=== PATIENT | male | born 1955 | race Caucasian/White ===

== ENCOUNTER 2017-11-04 14:46 | Emergency (ER) | payer OTHER ==
[~2017-11-04] VITALS: Ht 172.7 cm; Wt 86.3 kg
[~2017-11-04 14:46] MED LIST: ASPI81TA28 PO; ATV1 PO; CZR50 PO; MAGN400T6 PO; MELO7.5T5 PO; MULTTAB58 PO; PRLSR20 PO; SILD50TA PO; SIMV-151 PO; TRIA0.1C20 TOP
[2017-11-04 14:55] VITALS: TEMP 36.7; Ht 172.7 cm; Wt 86.3 kg
[2017-11-04] MEDS ORDERED: NRV/5 PO (15:06)
[2017-11-04] MEDS ORDERED: CZR50 PO (15:06)
--- NOTE | 2017-11-04 15:30 | DIAGNOSTIC IMAGING REPORT ---
CHEST ONE VIEW PORTABLE HISTORY: 61 years-old Male eval for pna acute cough with concern for pneumonia COMPARISON: Chest radiograph 03/04/2015 TECHNIQUE: Portable AP view of the chest FINDINGS: Cardiac silhouette is mildly enlarged. No pneumothorax, pleural effusion, focal airspace consolidation or overt pulmonary edema. Degenerative changes of the shoulders and spine. IMPRESSION: No acute process. The above report was generated using voice recognition software. It may contain grammatical, syntax or spelling errors. Electronically signed by: James Mary M.D. 11/04/2017 3:28 PM Dictated Date/Time: 11/04/2017 3:27 PM
[2017-11-04 15:43] VITALS: O2SAT 98
[2017-11-04 16:04] LABS: BASO % 0.3 %; BASO ABS # 0.02 K/uL (0-0.2); EOS % 9.7 %; EOS ABS # 0.59 K/uL (0-0.5); HEMATOCRIT 39.6 % (42-52); HEMOGLOBIN 13.4 g/dL (14.0-18.0); IG# 0.02 K/uL (0.00-0.02); LYMPH % 23.2 %; LYMPH ABS # 1.41 K/uL (1.2-3.4); MEAN CELL VOLUME 95.2 fL (80-100); MEAN CORPUSCULAR HEMOGLOBIN 32.2 pg (25-34); MEAN CORPUSCULAR HGB CONC 33.8 g/dl (32-36); MEAN PLATELET VOLUME 9.6 fL (7.4-10.4); MONO % 10.4 %; MONO ABS # 0.63 K/uL (0.11-0.59); NEUT % 56.1 %; NEUT ABS # 3.41 K/uL (1.4-6.5); PLATELET COUNT 252 K/uL (130-400); RED CELL DISTRIBUTION WIDTH CV 13.4 % (11.5-14.5); RED CELL DISTRIBUTION WIDTH SD 46.5 fL (36.4-46.3); WHITE BLOOD COUNT 6.08 K/uL (4.8-10.8)
[2017-11-04 16:25] LABS: CALCIUM 8.9 mg/dl (8.5-10.1); CREATININE 0.87 mg/dl (0.60-1.40)
[2017-11-04 16:27] LABS: PTT PATIENT 25.6 SECONDS (21.0-31.0)
[2017-11-04] MEDS ORDERED: SODIUM CHLORIDE 0.9% 1000ML 1,000 ML IV STA (16:34)
[2017-11-04 17:50] VITALS: BP 169/100; PULSE 80; O2SAT 96
--- NOTE | 2017-11-04 17:52 | EMERGENCY ROOM VISIT NOTE ---
History Report prepared by Nicole: Destiney Kelly Under the Supervision of: Dr. Abhilash Vargas M.D. First contact with patient: 15:07 Chief Complaint: DIZZY Stated Complaint: LIGHTHEADED, DIZZINESS,IRREGULAR HEARTBEAT Nursing Triage Summary: Vertigo x3 days with palpitations. Denies CP or dyspnea. History of Present Illness The patient is a 61 year old male who presents to the Emergency Room with complaints of intermittent lightheadedness starting 1 week ago. The patient states that he had one very brief episode of room spinning 8 days ago. He has mostly been feeling lightheaded with standing. He has also had some palpitations for the past week. He notes a history of PVC. He was diagnosed years ago but has never been on any medications. He does not feel faint. He denies any chest discomfort, SOB, fever, vomiting, diarrhea, abdominal pain, cold symptoms, or urinary symptoms. He thinks that he is eating and drinking enough, but his daughter does not think he drinks enough. He has a history of hypertension. He denies any recent medication changes. He notes that he is active and goes hiking regularly. Source of History: patient, family Onset: 1 week ago Position: head Quality: other (lightheadedness) Timing: intermittent Modifying Factors (Worsening): other (standing) Associated Symptoms: No fevers, No chest pain, No SOB, No vomiting, No abdominal pain, No diarrhea, No urinary symptoms Note: Pt reports palpitations. Review of Systems See HPI for pertinent positives & negatives. A total of 10 systems reviewed and were otherwise negative. Past Medical & Surgical Medical Problems: (1) Anxiety (2) Degenerative disc disease, cervical (3) Dyslipidemia (4) Erectile dysfunction (5) Hypertension (6) Mitral valve prolapse Surgical Problems: (1) H/O arthroscopic knee surgery Family History Heart disease Hypertension Social History Smoking Status: Never Smoker Marital Status: Housing Status: lives with family Occupation Status: employed Current/Historical Medications Scheduled Amlodipine Besylate (Amlodipine Besylate), 10 MG PO DAILY Aspirin (Aspirin Ec), 81 MG PO QAM Losartan Potassium (Losartan Potassium), 50 MG PO DAILY Magnesium Oxide (Mag-Ox), 400 MG PO QAM Meloxicam (Mobic), 15 MG PO DAILY Simvastatin (Simvastatin), 20 MG PO QPM Scheduled PRN Omeprazole (Prilosec), 20 MG PO DAILY PRN for Indigestion Allergies Coded Allergies: Buspirone (Verified Adverse Reaction, Intermediate, NAUSEA/VOMITING, ) Citalopram (Verified Adverse Reaction, Unknown, UNKNOWN - DOES NOT REMEMBER, 03/23/16) Physical Exam Vital Signs Date Time Temp Pulse Resp B/P (MAP) Pulse Ox O2 Delivery O2 Flow Rate FiO2 11/04/17 16:27 82 22 132/74 89 156/90 94 123/94 11/04/17 16:00 81 11/04/17 15:53 81 20 132/74 98 Room Air 11/04/17 15:43 98 Room Air 11/04/17 14:55 36.7 73 18 138/70 98 Room Air Physical Exam Constitutional: Vital signs reviewed. Eyes: Pupils are equal round reactive to light. Conjunctiva are noninjected. ENT: Pharynx is clear without erythema or exudate. Mucous membranes are moist. Neck supple without meningeal signs. Respiratory: Clear to auscultation bilaterally. Breath sounds are equal bilaterally. Cardiovascular: Regular rate and rhythm with frequent extrasystoles. No rubs or gallops. GI: Soft, nondistended and nontender. Bowel sounds are present. Musculoskeletal: No peripheral edema. No lower extremity tenderness. Integumentary: No cyanosis. Neurological: The patient is awake and alert. Cranial nerves II-XII are intact. Motor is 5 out of 5 all extremities. Sensation is intact to light touch all extremities. Normal speech. No pronator drift. No limb ataxia. Psychiatric: Normal affect. Medical Decision & Procedures ER Provider Diagnostic Interpretation: X-ray results as stated below per interpretation by me and the radiologist: CHEST ONE VIEW PORTABLE HISTORY: 61 years-old Male eval for pna acute cough with concern for pneumonia COMPARISON: Chest radiograph 03/04/2015 TECHNIQUE: Portable AP view of the chest FINDINGS: Cardiac silhouette is mildly enlarged. No pneumothorax, pleural effusion, focal airspace consolidation or overt pulmonary edema. Degenerative changes of the shoulders and spine. IMPRESSION: No acute process. The above report was generated using voice recognition software. It may contain grammatical, syntax or spelling errors. Electronically signed by: James Mary M.D. 11/04/2017 3:28 PM Dictated Date/Time: 11/04/2017 3:27 PM Laboratory Results 11/04/17 15:50 Red Blood Count 4.16, Mean Corpuscular Volume 95.2, Mean Corpuscular Hemoglobin 32.2, Mean Corpuscular Hemoglobin Concent 33.8, Mean Platelet Volume 9.6, Neutrophils (%) (Auto) 56.1, Lymphocytes (%) (Auto) 23.2, Monocytes (%) (Auto) 10.4, Eosinophils (%) (Auto) 9.7, Basophils (%) (Auto) 0.3, Neutrophils # (Auto ) 3.41, Lymphocytes # (Auto) 1.41, Monocytes # (Auto) 0.63, Eosinophils # (Auto ) 0.59, Basophils # (Auto) 0.02 11/04/17 15:50 Test 11/04/17 15:50 11/04/17 15:58 White Blood Count 6.08 K/uL (4.8-10.8) Red Blood Count 4.16 M/uL (4.7-6.1) Hemoglobin 13.4 g/dL (14.0-18.0) Hematocrit 39.6 % (42-52) Mean Corpuscular Volume 95.2 fL (80-100) Mean Corpuscular Hemoglobin 32.2 pg (25-34) Mean Corpuscular Hemoglobin Concent 33.8 g/dl (32-36) Platelet Count 252 K/uL (130-400) Mean Platelet Volume 9.6 fL (7.4-10.4) Neutrophils (%) (Auto) 56.1 % Lymphocytes (%) (Auto) 23.2 % Monocytes (%) (Auto) 10.4 % Eosinophils (%) (Auto) 9.7 % Basophils (%) (Auto) 0.3 % Neutrophils # (Auto) 3.41 K/uL (1.4-6.5) Lymphocytes # (Auto) 1.41 K/uL (1.2-3.4) Monocytes # (Auto) 0.63 K/uL (0.11-0.59) Eosinophils # (Auto) 0.59 K/uL (0-0.5) Basophils # (Auto) 0.02 K/uL (0-0.2) RDW Standard Deviation 46.5 fL (36.4-46.3) RDW Coefficient of Variation 13.4 % (11.5-14.5) Immature Granulocyte % (Auto) 0.3 % Immature Granulocyte # (Auto) 0.02 K/uL (0.00-0.02) Prothrombin Time 10.5 SECONDS (9.0-12.0) Prothromb Time International Ratio 1.0 (0.9-1.1) Activated Partial Thromboplast Time 25.6 SECONDS (21.0-31.0) Partial Thromboplastin Ratio 1.0 Urine Color YELLOW Urine Appearance CLEAR (CLEAR) Urine pH 7.0 (4.5-7.5) Urine Specific [place] 1.008 (1.000-1.030) Urine Protein NEG (NEG) Urine Glucose (UA) NEG (NEG) Urine Ketones NEG (NEG) Urine Occult Blood TRACE (NEG) Urine Nitrite NEG (NEG) Urine Bilirubin NEG (NEG) Urine Urobilinogen NEG (NEG) Urine Leukocyte Esterase NEG (NEG) Urine WBC (Auto) 0 /hpf (0-5) Urine RBC (Auto) 0-4 /hpf (0-4) Urine Hyaline Casts (Auto) 0 /lpf (0-5) Urine Epithelial Cells (Auto) 0-5 /lpf (0-5) Urine Bacteria (Auto) NEG (NEG) Anion Gap 4.0 mmol/L (3-11) Est Creatinine Clear Calc Drug Dose 95.3 ml/min Estimated GFR () 108.0 Estimated GFR (Non- 93.2 BUN/Creatinine Ratio 15.5 (10-20) Calcium Level 8.9 mg/dl (8.5-10.1) Magnesium Level 2.2 mg/dl (1.8-2.4) Thyroid Stimulating Hormone (TSH) 1.230 uIu/ml (0.300-4.500) Free Thyroxine 0.85 ng/dl (0.80-1.60) Bedside Troponin I < 0.030 ng/ml (0-0.045) Laboratory results as reviewed by me. Medications Administered Medications (Trade) Dose Ordered Sig/Patsy Route Start Time Stop Time Status Last Admin Dose Admin Sodium Chloride 1,000 ml @ 999 mls/hr Q1H1M STAT IV 11/04/17 16:34 11/04/17 17:34 DC 11/04/17 16:39 999 MLS/HR ECG Per My Interpretation Indication: palpitations Rate (beats per minute): 80 Rhythm: sinus rhythm Findings: PVC (frequent), Q waves (Septal), other (no ST elevation, no QT prolongation) ED Course 1508: The patient was evaluated in room A3. A complete history and physical exam was performed. 1634: Sodium Chloride 1000 ml @ 999 mls/hr IV. 1644: I reevaluated the patient. I updated him on the test results. 1730: I discussed the patient's case with [place], [facility]. He recommends the patient follow up in the office. He would not necessarily start the patient on beta blockers at this time. 1733: I reevaluated the patient. I discussed tonight's findings with him. I reviewed cardiology's recommendations. He verbalized agreement of the treatment plan. He was discharged home. Medical Decision This is a 61-year-old male who presents with palpitations and lightheadedness upon standing. Differential diagnosis includes dysrhythmia, A. fib, PVCs, electrolyte abnormality, metabolic derangement, dehydration, orthostatic hypotension. I did perform a limited focused review of portions of the patient' s old chart on the electronic medical record. The patient has had no recent pertinent visits to this hospital. I did evaluate the patient as noted above. This is a pleasant well-appearing gentleman presenting with a week of palpitations and lightheadedness upon standing. On examination he does have extrasystole consistent with PVCs. IV access was established. The patient was placed on a continuous radiographer cardiac catheterization. He does have multiple PVCs on the monitor. I did order and personally review the patient's 12-lead EKG and chest x-ray as described above. There is no evidence of acute ischemia on his twelve-lead EKG. chest x-ray is unremarkable. I did order and review the patient's blood work as noted in the electronic medical record. Electrolytes are unremarkable. TFTs are normal. Troponin is negative. He does have some mild decrease in his blood pressure upon standing. He was given a liter normal saline IV. I did discuss the test results with the patient. I did discuss case with Dr. Cunha of cardiology. He felt that the PVCs likely are were not related to the lightheadedness. The patient does state that he does a lot of hiking and his daughter states he does not stay well-hydrated. He did feel better after normal saline. Dr. Cunha did not feel the patient needed to be started on any medications for his PVCs and recommended he follow-up in the office. I did discuss this with the patient. He was discharged in good condition. I did review return instructions with him. Medication Reconcilliation Current Medication List: was personally reviewed by me Blood Pressure Screening Patient's blood pressure: Elevated blood pressure Blood pressure disposition: Referred to PCP Consults Time Called: 1647 Consulting Physician: Dr. C[place], [facility] Returned Call: [phone] I discussed the patient's case with him. He recommends the patient follow up in the office. He would not necessarily start the patient on beta blockers at this time. Impression Primary Impression: Palpitations Additional Impressions: PVC (premature ventricular contraction) Lightheadedness Scribe Attestation The scribe's documentation has been prepared under my direct and personally reviewed by me in its entirety. I confirm that the note above accurately reflects all work, treatment, procedures, and medical decision making performed by me. Departure Information Dispostion Home / Self-Care Referrals Tanner Bright D.ODeepika (PCP) Forms HOME CARE DOCUMENTATION FORM, IMPORTANT VISIT INFORMATION Patient Instructions My [facility], Premature Ventricular Contract About Additional Instructions You have been examined and treated today on an emergency basis only. This is not a substitute for, or an effort to provide, complete comprehensive medical care. It is impossible to recognize and treat all injuries or illnesses in a single emergency department visit. It is therefore important that you follow up closely with your physician. Call as soon as possible for an appointment. Return for worsening symptoms or if you develop fever, vomiting, chest pain, shortness of breath or any other concerning symptoms. Avoid any heavy exertion. Stay well hydrated. Avoid any stimulants such as caffeine. Problem Qualifiers
== END 2017-11-04 17:51 | disposition home or self-care (01) ==
LOC: C.EDB 14:48 → C.EDA 17:51
DX: R00.2 Palpitations (principal); I49.3 Ventricular premature depolarization; I10 Essential (primary) hypertension; F41.9 Anxiety disorder, unspecified; E78.5 Hyperlipidemia, unspecified; M50.30 Other cervical disc degeneration, unspecified cervical region; N52.9 Male erectile dysfunction, unspecified; I34.1 Nonrheumatic mitral (valve) prolapse; Z82.49 Family history of ischemic heart disease and other diseases of the circulatory system; Z79.82 Long term (current) use of aspirin; Z79.899 Other long term (current) drug therapy; Z88.8 Allergy status to other drugs, medicaments and biological substances

== ENCOUNTER 2019-08-11 10:29 | Inpatient (IN) ==
--- NOTE | 2019-07-28 10:13 | PAT Medication Instructions ---
Medication Instructions Date of Service July 28, 2019 Home Medications Medication Instructions Recorded gabapentin 100 mg capsule 100 mg PO TID #90 cap 02/05/19 aspirin 81 mg tablet,delayed release 81 mg PO DAILY losartan 50 mg tablet 50 mg PO QAM magnesium oxide 400 mg PO DAILY simvastatin 20 mg tablet 20 mg PO QPM amlodipine 10 mg PO QAM lorazepam 1 mg PO BID PRN metoprolol succinate 12.5 mg PO QAM multivitamin 1 cap PO QAM sildenafil [Viagra] 50 mg PO DAILY PRN triamcinolone acetonide 1 applic TOPICAL UD PRN meloxicam 15 mg tablet 15 mg PO DAILY omeprazole 20 mg capsule,delayed release 20 mg PO QAM gabapentin 100 mg capsule 100 mg PO TID prednisone 10 mg PO DAILY scopolamine base 1 patch TRANSDERMAL UD PRN Continue as directed scopolamine base 1 patch TRANSDERMAL UD PRN (continue as directed. If taking day of surgery, please let anesthesiologist know) ASK your surgeon for instructions meloxicam 15 mg tablet 15 mg PO DAILY STOP taking 24 hours before surgery triamcinolone acetonide 1 applic TOPICAL UD PRN DO NOT take the morning of surgery losartan 50 mg tablet 50 mg PO QAM magnesium oxide 400 mg PO DAILY multivitamin 1 cap PO QAM sildenafil [Viagra] 50 mg PO DAILY PRN Take morning of surgery With a small sip of water, OTHERWISE NOTHING TO EAT OR DRINK AFTER MIDNIGHT: amlodipine 10 mg PO QAM lorazepam 1 mg PO BID PRN (if needed) metoprolol succinate 12.5 mg PO QAM omeprazole 20 mg capsule,delayed release 20 mg PO QAM gabapentin 100 mg capsule 100 mg PO TID prednisone 10 mg PO DAILY Take evening before surgery simvastatin 20 mg tablet 20 mg PO QPM lorazepam 1 mg PO BID PRN (if needed) sildenafil [Viagra] 50 mg PO DAILY PRN (if needed) gabapentin 100 mg capsule 100 mg PO TID scopolamine base 1 patch TRANSDERMAL UD PRN (if needed) Other Notes If you have any questions please call us at [phone] or [phone] or [phone] or [phone]
--- NOTE | 2019-07-29 12:22 | Anesthesiology Consultation ---
Date of Service July 29, 2019 Assessment & Plan (1) Encounter for pre-operative examination: S/P C4 corpectomy, C5-6 ACDF: 05/16/18: Grade 2 view (cricoid pressure to improve view), MAC#4, ETT 8.0 at [facility] (atraumatic, large floppy epiglottis required CCP to see beyond) Chart Review Chart Review: Acceptable Risk for Surgery History Surgery Operation Date: 08/11/19 12:35 Proposed Procedures p L4-L5 Decompression Fusion, Spinal Cord Monitoring - Toni Vázquez DO Height/Weight Height: 5 ft 8 in Weight: 73.7 kg Allergies Allergy/AdvReac Type Severity Reaction Status Date / Time citalopram Allergy Unknown UNKNOWN Verified 07/29/19 12:25 REACTION buspirone AdvReac Unknown NAUSEA/VOMI Verified 07/17/19 09:32 TING Medications Home Medications Medication Instructions Recorded Confirmed Last Taken aspirin 81 mg tablet,delayed 81 mg PO DAILY 04/16/18 07/17/19 05/15/18 06:00 release losartan 50 mg tablet 50 mg PO QAM 04/16/18 07/17/19 07/17/19 magnesium oxide 400 mg PO DAILY tab 04/16/18 07/17/19 05/15/18 06:00 simvastatin 20 mg tablet 20 mg PO QPM 04/16/18 07/17/19 05/15/18 17:30 amlodipine 10 mg PO QAM 05/13/18 07/17/19 07/17/19 lorazepam 1 mg PO BID PRN 05/13/18 07/17/19 05/16/18 05:00 metoprolol succinate 12.5 mg PO QAM 05/13/18 07/17/19 07/17/19 multivitamin 1 cap PO QAM 05/13/18 07/17/19 05/15/18 06:00 sildenafil [Viagra] 50 mg PO DAILY PRN 05/13/18 07/17/19 Unknown triamcinolone acetonide 1 applic TOPICAL UD PRN 05/13/18 07/17/19 Unknown meloxicam 15 mg tablet 15 mg PO DAILY 08/08/18 07/17/19 Unknown omeprazole 20 mg capsule,delayed 20 mg PO QAM 09/30/18 07/17/19 07/17/19 release gabapentin 100 mg capsule 100 mg PO TID #90 cap 02/05/19 07/17/19 Unknown Past Medical History Medical History (Updated 07/29/19 @ 12:38 by Elva Sauceda) Acid reflux controlled Anxiety (Chronic) Cavernous malformation (Chronic) incidental findings/under surveillance Dyslipidemia (Chronic) Hypertension (Chronic) Lumbar spinal stenosis (Chronic) with occasional RLE radiculopathy- s/p prednisone course completed week of 07/20/19 Symptomatic PVCs (Chronic) Resolved completely with Metoprolol Exercise / Class Metabolic Activity II 4-5 Yardwork/Stairs/Walk up hill Past Surgical History Surgical History Cervical vertebral fusion (Chronic) C4 corpectomy, C5-6 ACDF: 05/16/18: Grade 2 view (cricoid pressure to improve view), MAC#4, ETT 8.0 at [facility] (atraumatic, large floppy epiglottis required CCP to see beyond) H/O arthroscopic knee surgery (Chronic) right x1, left x1 Hx of appendectomy (Chronic) Hx of colonoscopy (Chronic) Hx of eye surgery (Chronic) LEFT - macular pouch surgery 2014 [facility] Past Anesthesia History No Hx of Anesthesia Complications and No Family Hx of Anesthesia Complications History of PONV No Hx of PONV and No Hx of Motion Sickness Social History Smoking Status: Former smoker tobacco type: cigarettes Smoking cigarettes per day: 1 PPD X 5 YEAR (IN COLLEGE) Do You Dip or Chew Tobacco: No Hx Alcohol Use: Yes Alcohol type: wine alcohol intake frequency: 0-2 drinks per day (1-2 WINE/NIGHT) Hx Substance Use: No substance use type: does not use Review of Systems Patient denies chest pain, shortness of breath, dyspnea on exertion, cough, wheezing, palpitations. Physical Exam Vital Signs VITALS BP 133/80 P 73 TEMP 98.8 SP02 98%RA RESP 16 PHYSICAL Full neck and c-spine range of motion. Full TMJ range of motion. TMD 3.5 finger breaths Mallampati Score 1 Dentition: missing molar, missing cap on right sided molar Lungs: clear throughout to auscultation Cardiac: regular rate and rhythm, no murmurs noted Spine: normal Carotid arteries: negative bruit Extremities: no edema Trimmed tenorio Testing Laboratory Results 07/29/19 12:40 07/29/19 12:40 PT 10.3 Seconds (9.0-12.0) 07/29/19 12:40 INR 1.0 (0.9-1.1) 07/29/19 12:40 APTT 24.1 Seconds (21.0-31.0) 07/29/19 12:40 Urine Color Yellow 07/29/19 Unknown Urine Appearance Clear (Clear) 07/29/19 Unknown Urine pH 7.0 (4.5-7.5) 07/29/19 Unknown Ur Specific [place] 1.011 (1.000-1.030) 07/29/19 Unknown Urine Protein Negative (Negative) 07/29/19 Unknown Urine Glucose (UA) Negative (Negative) 07/29/19 Unknown Urine Ketones 1+ (Negative) H 07/29/19 Unknown Urine Nitrite Negative (Negative) 07/29/19 Unknown Ur Leukocyte Esterase Negative (Negative) 07/29/19 Unknown Urine WBC (Auto) 0 /hpf (0-5) 07/29/19 Unknown Urine RBC (Auto) 5-10 /hpf (0-4) H 07/29/19 Unknown U Hyaline Cast (Auto) 0 /lpf (0-5) 07/29/19 Unknown U Epithel Cells (Auto) 0-5 /lpf (0-5) 07/29/19 Unknown Urine Bacteria (Auto) Negative (Negative) 07/29/19 Unknown Blood Type A Positive 07/29/19 12:40 Antibody Screen NEGATIVE 07/29/19 12:40 Electrocardiogram Date: 01/28/19 NSR at 62bpm. Septal infarct, age undetermined. No significant change compared to 02/06/12 per cardiology. S/P ECHO 10/2017* Chest X-Ray Date: 07/29/19 Findings: + NAD Echocardiogram Date: 11/29/17 EF: 55-59% Left ventricular wall motion is normal. There is mild posterior mitral leaflet prolapse. Mild MR. The mitral regurg jet is posteriorly directed.
[2019-07-29 12:59] LABS: Basophils # (auto) 0.01 K/uL (0-0.2); Basophils % (auto) 0.1 %; Eosinophils # (auto) 0.03 K/uL (0-0.5); Eosinophils % (auto) 0.4 %; Hematocrit (blood only) 43.9 % (42-52); Hemoglobin 14.5 g/dL (14.0-18.0); Immature Granulocytes # (auto) 0.02 K/uL (0.00-0.02); Immature Granulocytes % (auto) 0.3 %; Lymphocytes # (auto) 0.89 K/uL (1.2-3.4); Lymphocytes % (auto) 11.8 %; Mean Corpuscular Hemoglobin 32.3 pg (25-34); Mean Corpuscular Volume 97.8 fL (80-100); Mean Platelet Volume 10.1 fL (7.4-10.4); Monocytes # (auto) 0.45 K/uL (0.11-0.59); Neutrophils # (auto) 6.16 K/uL (1.4-6.5); Neutrophils % (auto) 81.4 %; Platelet Count 257 K/uL (130-400); RDW Coefficient of Variation 13.5 % (11.5-14.5); RDW Standard Deviation 48.1 fL (36.4-46.3); Red Blood Count 4.49 M/uL (4.7-6.1); White Blood Count 7.56 K/uL (4.8-10.8)
[2019-07-29 13:01] LABS: Appearance Urine Clear (Clear); Bacteria Urine Automated Negative (Negative); Bilirubin Urine Negative (Negative); Blood Urine Trace (Negative); Cast Urine Automated 0 /lpf (0-5); Color Urine Yellow; Epithelial Cell Urine Auto 0-5 /lpf (0-5); Glucose Urine UA Negative (Negative); Ketones Urine 1+ (Negative); Leukocyte Esterase Urine Negative (Negative); Nitrite Urine Negative (Negative); Protein Urine Negative (Negative); Specific Gravity Urine 1.011 (1.000-1.030); Urobilinogen Urine Negative (Negative); WBC Urine Automated 0 /hpf (0-5)
[2019-07-29 13:09] LABS: Partial Thromboplastin Ratio 0.9; Partial Thromboplastin Time 24.1 Seconds (21.0-31.0); Prothrombin Time 10.3 Seconds (9.0-12.0)
--- NOTE | 2019-07-29 13:15 | XRay Report ---
XR chest Pre-admission PA/Lat HISTORY: Preop. COMPARISON: Chest 05/10/2018. FINDINGS: The lungs are clear. Cardiac silhouette is normal in size. No pleural effusions. No pneumot horax. Cervical spinal fusion hardware is noted. IMPRESSION: No acute process. ACT 112: Negative or not required by law. Electronically signed by: Reginaldo Caputo M.D. 07/29/2019 1:14 PM
[2019-07-29 15:46] LABS: BUN Creatinine Ratio 17.4 (10-20); Calcium 9.7 mg/dl (8.5-10.1); Est GFR (African American) 98.3; Est GFR (Non-African American) 84.9
[~2019-08-11 10:29] MED LIST changes: +ACETAMINOPHEN 500 MG TAB PO SCH; -ASPI81TA28 PO; -ATV1 PO; +CEFAZOLIN 1000MG 1,000 MG/7.5 ML SYR IV SCH; -CZR50 PO; +CeleBREX 200 MG CAP PO SCH; +GABAPENTIN 600 MG DOSE PO SCH; +LR 15ML/HR IV SCH; -MAGN400T6 PO; -MELO7.5T5 PO; -MULTTAB58 PO; -PRLSR20 PO; -SILD50TA PO; -SIMV-151 PO; -TRIA0.1C20 TOP
[2019-08-11] MEDS ORDERED: fentaNYL citrate 100 MCG/2 ML VIAL ONE (12:02)
[2019-08-11] MEDS ORDERED: MIDAZOLAM HCL 1 MG/ML 2ML VIAL ONE (12:02)
[2019-08-11] MEDS ORDERED: ePHEDrine sulfate 50 MG/ML AMP IV PRN (12:07)
[2019-08-11] MEDS ORDERED: PROMETHAZINE HCL 6.25 MG in SODIUM CHLORIDE 0.9% 50 ML IV PRN (12:07)
[2019-08-11] MEDS ORDERED: ATROPINE SULFATE 0.1 MG/ML 10ML SYR IV PRN (12:07)
[2019-08-11] MEDS ORDERED: ONDANSETRON INJ 2 MG/ML 2 ML VIAL IV PRN ×2 (12:07→16:53)
--- NOTE | 2019-08-11 12:59 | History & Physical Bridge Note ---
Date of Service August 11, 2019 History & Physical Bridge Note I have examined the patient, reviewed the History & Physical and in the interval since the performance of the History & Physical I have noted the following changes of clinical significance: no changes noted
--- NOTE | 2019-08-11 13:03 | History & Physical Report ---
Date of Service August 11, 2019 Assessment & Plan (1) Neurogenic claudication due to lumbar spinal stenosis: L4-L5 decompression fusion Present on Admission?: Yes History of Present Illness Chief Complaint: Back and leg pain Primary Care Provider: Tanner Bright, This is a 63-year-old male presents with chronic persistent back and leg pain after failed extensive course of nonoperative care is here for surgical intervention. Allergies Allergy/AdvReac Type Severity Reaction Status Date / Time citalopram Allergy Unknown UNKNOWN Verified 08/11/19 10:53 REACTION buspirone AdvReac Unknown NAUSEA/VOMI Verified 08/11/19 10:53 TING Home Medications Home Medications Medication Instructions Recorded Confirmed Type aspirin 81 mg tablet,delayed 81 mg PO DAILY 04/16/18 08/11/19 History release losartan 50 mg tablet 50 mg PO QAM 04/16/18 08/11/19 History magnesium oxide 400 mg PO DAILY tab 04/16/18 08/11/19 History simvastatin 20 mg tablet 20 mg PO QPM 04/16/18 08/11/19 History amlodipine 10 mg PO QAM 05/13/18 08/11/19 History lorazepam 1 mg PO BID PRN 05/13/18 08/11/19 History metoprolol succinate 12.5 mg PO QAM 05/13/18 08/11/19 History multivitamin 1 cap PO QAM 05/13/18 08/11/19 History sildenafil [Viagra] 50 mg PO DAILY PRN 05/13/18 08/11/19 History triamcinolone acetonide 1 applic TOPICAL UD PRN 05/13/18 08/11/19 History meloxicam 15 mg tablet 15 mg PO DAILY 08/08/18 08/11/19 History omeprazole 20 mg capsule,delayed 20 mg PO QAM 09/30/18 08/11/19 History release gabapentin 100 mg capsule 100 mg PO TID #90 cap 02/05/19 08/11/19 Rx Past Med/Surg History Social History Preferred Language: Latvian Communication Ability: Effective Visual Impairment: No Limitations Glost Tile Shader Required: No Beliefs That Will Affect Care: None Current Living Situation: Spouse Other Information That Helps Us Care for You: No Feels Safe at Home: Yes Smoking Status: Former smoker Tobacco Type: cigarettes ; Cigarettes Per Day: 1 PPD X 5 YEAR (IN COLLEGE) ; Do You Dip or Chew Tobacco: No ; Second Hand Exposure: No ; Hx Alcohol Use: Yes Alcohol type: wine Hx Substance Use: No Physical Exam Physical Exam: Patient is alert and oriented neurologically intact. Results & Data Vital Signs (Past 12 Hours) Vital Signs Temp Pulse Resp BP Pulse Ox 08/11/19 10:58 36.9 C 68 18 137/79 97
[2019-08-11] MEDS ORDERED: BUPIVACAINE/EPINEPHRINE 0.25% 1:200,000 30 ML VIAL ONE ×2 (13:23→13:33)
[2019-08-11] MEDS ORDERED: BACITRACIN INJ 50,000 UNIT VIAL ONE (13:23)
[2019-08-11] MEDS ORDERED: LIDOCAINE HCL 2% 2 ML VIAL/AMP(20MG/ML) INFIL ONE (14:08)
[2019-08-11] MEDS ORDERED: ROCURONIUM BROMIDE 10 MG/ML 5 ML VIAL ONE (14:08)
[2019-08-11] MEDS ORDERED: ePHEDrine sulfate 50 MG/ML AMP ONE (14:08)
[2019-08-11] MEDS ORDERED: GLYCOPYRROLATE 0.2 MG/ML VIAL ONE (14:08)
[2019-08-11] MEDS ORDERED: PROPOFOL IV EMULSION 10 MG/ML 20 ML VIAL IV ONE (14:08)
[2019-08-11] MEDS ORDERED: DEXAMETHASONE SOD INJ 4 MG/ML VIAL ONE (14:08)
[2019-08-11] MEDS ORDERED: NEOSTIGMINE METHYLSULFATE 1 MG/ML 10ML VIAL ONE (14:08)
[2019-08-11] MEDS ORDERED: ONDANSETRON INJ 2 MG/ML 2 ML VIAL ONE (14:08)
[2019-08-11] MEDS ORDERED: FLOSEAL HEMOSTATIC MATRIX 10ML TOP ONE (15:08)
--- NOTE | 2019-08-11 15:25 | Operative Report ---
Post Operative Report Pre & Post Diagnosis Operation Date: 08/11/19 12:45 Pre-Op Diagnosis: LUMBAR SPINAL STENOSIS W/NEUROGENIC CLAUDICATION Post-Op Diagnosis: LUMBAR SPINAL STENOSIS W/NEUROGENIC CLAUDICATION I identified the patient and participated in the time-out.: Yes Procedure Operation Date: 08/11/19 12:45 Actual Procedures #1 lumbar decompression with bilateral medial facetectomies foraminotomies L3-4 L4-5. #2 posterior spinal fusion L4-5 per #3 placement posterior instrumentation L4-5 per #4 interbody fusion L4-5 per #5 placed a peek cage 10 x 26 mm at L4-5 per #6 placement of locally harvested morselized autograft in the posterior lateral gutters. #7 placement infuse collagen sponge, master graft in the posterior lateral gutters and ostial amp and interbody space. Surgeon Toni Vázquez, Electrical And Radio Mechanic None Estimated Blood Loss 100 Findings Consistent with Post-Op Diagnosis Specimens None Indications This is a 63-year-old male known to me that presents with above-mentioned diagnosis after failing extensive course of nonoperative care is here for surgical intervention. Description of Procedure Patient was met with identified informed consent obtained. Patient was then taken to the operative suite underwent intubation placed in a prone position the Kvng table top of the Stevenson frame. All bony prominences were well-padded eyes inspected to ensure no external pressure placed upon them. This point the lumbar spine was prepped and draped in normal sterile fashion. Sharp dissection with the assistance of Bovie cautery was performed down to and exposing the lamina and transverse processes of L4 and L5. From caudal cephalad fashion complete laminectomy of L4 partial laminectomy of L3 was performed including bilateral medial facetectomies and foraminotomies addressing severe stenosis. Pedicle screws were then placed in L4 and L5 bilaterally with assistance of fluoroscopy the proper sized nitza placed. Believe a transforaminal approach on the right a complete discectomy was performed endplates curetted to subcortical bleeding bone and a 10 x 26 mm peek cage filled with osteo-bone graft tapped in position. The rods were then locked into final position bilaterally. The transverse processes of L4 and L5 bur to subcortical bleeding bone. Infuse collagen sponge master graft local autograft was then placed in the posterior lateral gutters. 15 round FERNANDA drain inserted. Incision was then closed with 1 Vicryl in the fascia 2-0 Vicryl subcutaneously and 4 Monocryl for final skin closure. Steri-Strip sterile dressing was placed. Patient will continue PACU stable condition. Please note spinal cord monitoring was utilized that the procedure no changes noted. I attest to the content of the Intraoperative Record and any orders documented therein. Any exceptions are noted below.
--- NOTE | 2019-08-11 15:31 | Fluoroscopy Report ---
FL lumbar spine 2-3V CLINICAL HISTORY: L4-L5 DECOMPRESSION AND FUSION COMPARISON STUDY: Lumbar spine MRI August 16, 2018. FLUOROSCOPY TIME: 15 seconds. FLUOROSCOPIC IMAGES: 2 FINDINGS: These images demonstrate an L4-L5 discectomy with interbody spacer placement. There is a po sterior decompression with bilateral pedicle screws at the L4 and L5 levels with interconnecting rods . Hardware is intact. There are no unexpected radiopaque foreign bodies. IMPRESSION: Fluoroscopy provided for L4-L5 discectomy, posterior decompression and bilateral pedicle screw fusion. ACT 112: Negative or not required by law. Electronically signed by: Dallas Lucio M.D. 08/11/2019 3:29 PM
[2019-08-11] MEDS: fentaNYL citrate 100 MCG/2 ML VIAL IV PRN ×2 (15:39→15:45)
[2019-08-11] MEDS: HYDROmorphone INJ 2 MG/ML SYR/VIAL IV PRN ×3 (15:51→16:07)
--- NOTE | 2019-08-11 16:25 | Anesthesiology Progress Note ---
Date of Service August 11, 2019 Anesthesia Post Procedure Vital Signs Vital Signs: Temp Pulse Pulse Resp BP Pulse Ox 08/11/19 16:20 37.1 C 60 12 122/68 96 08/11/19 16:10 70 14 118/72 96 08/11/19 16:00 67 14 119/73 98 08/11/19 15:50 61 12 135/78 97 08/11/19 15:40 71 18 125/74 98 08/11/19 15:31 36.3 C L 78 13 128/80 97 08/11/19 10:58 36.9 C 68 18 137/79 97 Pain Intensity Back: Pain Intensity: 3 Transfer of Care Handoff Completed per policy Notes Mental Status: alert / awake / arousable Patient Amnestic to Procedure: Yes Nausea / Vomiting: adequately controlled Pain: adequately controlled Airway Patency, RR, SpO2: stable & adequate BP & HR: stable & adequate Hydration State: stable & adequate Anesthetic Complications: no major complications apparent
[2019-08-11] MEDS ORDERED: HYDROmorphone INJ 1 MG/ML SYRINGE IV PRN (16:53)
[2019-08-11] MEDS ORDERED: MAGNESIUM HYDROXIDE SUSP 30 ML UDC PO PRN (16:53)
[2019-08-11] MEDS ORDERED: ACETAMINOPHEN 1,000 MG/100 ML VIAL IV PRN (16:53)
[2019-08-11] MEDS ORDERED: DO NOT ADMINISTER PNEUMOCOCCAL VACCINE PRN (16:53)
[2019-08-11] MEDS ORDERED: LORazepam 0.5 MG TAB PO PRN (16:53)
[2019-08-11] MEDS ORDERED: LORazepam 0.5 MG/1 ML VIAL IV PRN (16:53)
[2019-08-11] MEDS ORDERED: NALOXONE HCL 0.4 MG/1 ML VIAL/CARP IV PRN (16:53)
[2019-08-11] MEDS ORDERED: OXYCODONE HCL IR 5 MG TAB (IMMEDIATE RELEASE) PO PRN (16:53)
[2019-08-11] MEDS ORDERED: DO NOT ADMINISTER FLU VACCINE PRN (16:53)
[2019-08-11] MEDS ORDERED: ONDANSETRON 4 MG OD TAB PO PRN (16:53)
[2019-08-11] MEDS ORDERED: bisacodyL 10 MG SUPP PR PRN (16:53)
[2019-08-11] MEDS ORDERED: TRIAMCINOLONE ACET 0.1% CR 15 GM TUBE TOP PRN (16:53)
[2019-08-11] MEDS ORDERED: PROMETHAZINE HCL 12.5 MG in SODIUM CHLORIDE 0.9% 50 ML IV PRN (16:53)
[2019-08-11] MEDS ORDERED: ACETAMINOPHEN 500 MG TAB PO PRN (16:53)
[2019-08-11] MEDS ORDERED: ALUMINUM/MAGNESIUM SUSP 30 ML UDC PO PRN (16:53)
[2019-08-11] MEDS ORDERED: HYDROmorphone INJ 0.5 MG/0.5 ML SYR IV PRN (16:53)
[2019-08-11] MEDS ORDERED: SOD PHOSPHATE/SOD BIPHOSPHATE ENEMA 132 ML BTL PR PRN (16:53)
[2019-08-11] MEDS ORDERED: FAMOTIDINE 20 MG TAB PO PRN (16:53)
[2019-08-11] MEDS ORDERED: METOCLOPRAMIDE HCL INJ 5 MG/ML 2 ML VIAL IV PRN (16:53)
[2019-08-11] MEDS: KETOROLAC TROMETHAMINE 15 MG/ML VIAL IV SCH ×2 (18:10→23:26)
[2019-08-11] MEDS: GABAPENTIN 100 MG CAP PO SCH (20:17)
[2019-08-11] MEDS: DOCUSATE SODIUM/SENNA 50/8.6MG TAB PO SCH (20:17)
[2019-08-11] MEDS: SIMVASTATIN 20 MG TAB PO SCH (20:17)
[2019-08-11] MEDS: LACTATED RINGER'S 1,000 ML IV SCH (22:01)
[2019-08-11] MEDS: CEFAZOLIN 2000MG 2,000 MG/15 ML SYR IV SCH (22:01)
[2019-08-11] MEDS: LORazepam 1 MG TAB PO PRN (23:26)
[2019-08-12] MEDS: LACTATED RINGER'S 1,000 ML IV SCH (03:45)
[2019-08-12] MEDS: TRAMADOL HCL 50 MG TABLET PO PRN ×4 (04:33→21:29)
[2019-08-12 05:28] LABS: Hematocrit (blood only) 33.5 % (42-52); Hemoglobin 11.5 g/dL (14.0-18.0); Immature Granulocytes # (auto) 0.03 K/uL (0.00-0.02); Immature Granulocytes % (auto) 0.2 %; Lymphocytes # (auto) 0.64 K/uL (1.2-3.4); Lymphocytes % (auto) 4.4 %; Mean Corpuscular Hgb Conc 34.3 g/dL (32-36); Mean Corpuscular Volume 93.3 fL (80-100); Mean Platelet Volume 10.3 fL (7.4-10.4); Monocytes # (auto) 0.62 K/uL (0.11-0.59); Monocytes % (auto) 4.2 %; Neutrophils # (auto) 13.37 K/uL (1.4-6.5); Neutrophils % (auto) 91.2 %; Platelet Count 212 K/uL (130-400); RDW Standard Deviation 44.7 fL (36.4-46.3); Red Blood Count 3.59 M/uL (4.7-6.1); White Blood Count 14.66 K/uL (4.8-10.8)
[2019-08-12] MEDS: POLYETHYLENE (MIRALAX) 17 GM PACK PO SCH ×4 (05:49→23:05)
[2019-08-12] MEDS: KETOROLAC TROMETHAMINE 15 MG/ML VIAL IV SCH ×2 (05:49→12:03)
[2019-08-12] MEDS: CEFAZOLIN 2000MG 2,000 MG/15 ML SYR IV SCH (05:49)
[2019-08-12 06:00] LABS: BUN Creatinine Ratio 17.1 (10-20); Calcium 8.4 mg/dl (8.5-10.1); Creatinine Clr Calc Pharmacy 81.3 ml/min; Est GFR (Non-African American) 90.6; Potassium 4.1 mmol/L (3.5-5.1)
--- NOTE | 2019-08-12 07:40 | Anesthesiology Progress Note ---
Date of Service August 12, 2019 Anesthesia Post Procedure Vital Signs Vital Signs: Temp Pulse Pulse Pulse Resp BP Pulse Ox 08/12/19 07:14 37.0 C 57 L 16 108/67 95 08/12/19 02:58 36.7 C 77 16 103/51 L 97 08/11/19 23:05 36.4 C L 61 16 119/70 92 08/11/19 20:00 36.7 C 70 16 111/66 97 08/11/19 18:42 36.3 C L 65 16 111/71 96 08/11/19 17:41 36.3 C L 70 17 106/64 95 08/11/19 16:40 36.7 C 76 16 133/78 99 08/11/19 16:20 37.1 C 60 12 122/68 96 08/11/19 16:10 70 14 118/72 96 08/11/19 16:00 67 14 119/73 98 08/11/19 15:50 61 12 135/78 97 08/11/19 15:40 71 18 125/74 98 08/11/19 15:31 36.3 C L 78 13 128/80 97 08/11/19 10:58 36.9 C 68 18 137/79 97 Pain Intensity Back: Pain Intensity: 3 Notes Mental Status: alert / awake / arousable and participated in evaluation Patient Amnestic to Procedure: Yes Nausea / Vomiting: adequately controlled Pain: adequately controlled Airway Patency, RR, SpO2: stable & adequate BP & HR: stable & adequate Hydration State: stable & adequate Anesthetic Complications: no major complications apparent and Pt Satisfied with anesthetic care
[2019-08-12] MEDS: LOSARTAN POTASSIUM 50 MG TAB PO SCH (08:35)
[2019-08-12] MEDS: MAGNESIUM OXIDE 400 MG TAB PO SCH (08:35)
[2019-08-12] MEDS: GABAPENTIN 100 MG CAP PO SCH ×3 (08:36→20:52)
[2019-08-12] MEDS: PANTOprazole 40 MG TAB PO SCH (08:36)
[2019-08-12] MEDS: AMLODIPINE BESYLATE 5 MG TAB PO SCH (08:36)
[2019-08-12] MEDS: MULTIVITAMIN TAB PO SCH (08:36)
[2019-08-12] MEDS: ASPIRIN 81 MG ECTAB PO SCH (08:36)
[2019-08-12] MEDS: METOPROLOL SUCC 25MG EXT REL TAB PO SCH (08:37)
[2019-08-12] MEDS: LORazepam 1 MG TAB PO PRN ×2 (11:29→21:30)
--- NOTE | 2019-08-12 16:13 | Orthopedic Progress Note ---
Date of Service August 12, 2019 Assessment & Plan (1) Neurogenic claudication due to lumbar spinal stenosis: At this time we will continue physical therapy monitor his FERNANDA output anticipate discharge home in the next few days. Present on Admission?: Yes Admission and Anticipated Discharge Date Admission Date: August 11, 2019 Subjective Back pain controlled leg symptoms improved Physical Exam Physical Exam: Patient is good strength testing appears comfortable. Results & Data ([facility]) Vital Signs (Past 12 Hours) Vital Signs Temp Pulse Pulse Resp BP Pulse Ox 08/12/19 15:02 36.6 C 65 16 121/75 97 08/12/19 10:38 36.4 C L 63 18 111/70 100 08/12/19 07:14 37.0 C 57 L 16 108/67 95
[2019-08-12] MEDS: DOCUSATE SODIUM/SENNA 50/8.6MG TAB PO SCH (20:51)
[2019-08-12] MEDS: SIMVASTATIN 20 MG TAB PO SCH (20:52)
[2019-08-13] MEDS: POLYETHYLENE (MIRALAX) 17 GM PACK PO SCH ×2 (05:30→12:30)
[2019-08-13] MEDS: TRAMADOL HCL 50 MG TABLET PO PRN ×2 (05:33→09:31)
[2019-08-13] MEDS: AMLODIPINE BESYLATE 5 MG TAB PO SCH (08:30)
[2019-08-13] MEDS: LOSARTAN POTASSIUM 50 MG TAB PO SCH (08:30)
[2019-08-13] MEDS: ASPIRIN 81 MG ECTAB PO SCH (08:30)
[2019-08-13] MEDS: MULTIVITAMIN TAB PO SCH (08:30)
[2019-08-13] MEDS: MAGNESIUM OXIDE 400 MG TAB PO SCH (08:30)
[2019-08-13] MEDS: GABAPENTIN 100 MG CAP PO SCH (08:30)
[2019-08-13] MEDS: METOPROLOL SUCC 25MG EXT REL TAB PO SCH (08:31)
[2019-08-13] MEDS: PANTOprazole 40 MG TAB PO SCH (08:31)
[2019-08-13] MEDS: LORazepam 1 MG TAB PO PRN (09:32)
--- NOTE | 2019-08-13 13:41 | Discharge Summary ---
Date of Service August 13, 2019 Admission HPI Per Admitting Provider This is a 63-year-old male presents with chronic persistent back and leg pain after failed extensive course of nonoperative care is here for surgical intervention. Principal Diagnosis Lumbar spinal stenosis with neurogenic claudication Discharge Data Allergies Allergy/AdvReac Type Severity Reaction Status Date / Time citalopram Allergy Unknown UNKNOWN Verified 08/11/19 10:53 REACTION buspirone AdvReac Unknown NAUSEA/VOMI Verified 08/11/19 10:53 TING Consultations 08/11/19 16:53 Consult Case Management - Discharge Planning Routine Procedures Performed Operation Date: 08/11/19 12:45 Actual Procedures p L4-L5 Decompression Fusion, Interbody Cage L4-L5; Application of Bone Infuse and Allograft, With Spinal Cord Monitoring - Toni Vázquez DO Ordered Studies 08/11/19 12:45 FL fluoroscopy <1hr Routine FL lumbar spine 2-3V Routine Hospital Course (1) Neurogenic claudication due to lumbar spinal stenosis: Patient with lumbar decompression fusion tolerated as well as taken to orthopedic for postoperative. Postop day 1 his leg pain was improved ambulating well progressed to postop day #2. Excellent strength testing that day. FERNANDA drain decreasing appropriately. Subsequently discharged home. Discharge orders instructions from the chart for further review. Total Time Total Time Spent Total Time Spent (In Minutes): 20 minutes Discharge Plan Discharge Items Patient Disposition: Home - Self-Care Reason For Visit: LUMBAR SPINAL STENOSIS W/NEUROGENIC CLAUDICATION Discharge Diagnosis: Lumbar spinal stenosis with neurogenic claudication Activity: As commented below Non-emergency contact: Primary Care Provider Call non-emergency contact if: you have any medication questions Follow-up/Referrals: Tanner Bright DO [Primary Care Provider] - Diet: Regular Addtl Attending Provider Instructions: ACTIVITY RECOMMENDATIONS: SELF CARE INSTRUCTIONS AFTER THORACIC/LUMBAR FUSIONS 1. You may walk to your tolerance. It is good exercise for your legs and back. Expect some back and intermittent leg aches and pains. 2. You may perform "counter-top" level activities (make a sandwich, acosta with a project, etc.). 3. No bending or lifting of more than 10 pounds or back twisting of any nature (roll like a log when turning in bed). 4. You may ride in a car for 20-30 minutes at a time. No driving until after your first visit with your doctor. 5. Frequent changes of position and restricting sitting to 30 minutes at a time will help limit the amount of back spasms and stiffness you may experience. 6. You may discontinue the use of ambulatory aids (cane, crutches, etc.) once your strength and confidence allow. 7. You may senior accounting analyst the shower and let water strike your incision when you arrive home at least once daily. Do not take a tub bath, sit in a hot tub or go into a swimming pool until after your first recheck in the office. SPECIAL CARE INSTRUCTIONS: VERY IMPORTANT TO READ AND REVIEW A. Your surgical incision has been closed with a cosmetic suture under the skin that will dissolve in about 6 weeks. In 14 days, you can use a pair of clean scissors and cut the suture that is left outside of the skin at the ends of your incision. 1. The small skin tapes can be removed 7 days after surgery if they have not fallen off by that point. 2. You may keep the wound open to air as much as possible to promote healing after post-op day number 5 unless told otherwise by your doctor. 3. If you think the wound looks like it is becoming infected (redness or worsening drainage) and/or you are experiencing fever, chill or worsening back pain and muscle spasms, contact the office so that we may evaluate you as soon as possible. B. Complications are uncommon, but please contact us if you have any signs or symptoms of: 1. wound infection (fever higher than 102.5 degrees F, redness, separation of wound, drainage, or increasing pain from the incision) 2. blood clots in legs (pain, swelling, redness and warmth in legs) 3. urinary tract infection (fever higher than 102.5 degrees F, burning upon urination or increased frequency of urination) 4. nerve problems (inability to walk on your toes or heels, numbness, loss of bowel or bladder control) 5. any other symptoms that concern you C. Please call the office at if you have any concerns or qu estions about your operation or recovery. D. No smoking! Smoking drastically decreases the chance of a solid fusion. E. Do not take any anti-inflammatory medications (Indocin, Advil, Motrin, Aspirin, Naprosyn, etc.) as these may inhibit the chance of a solid fusion. Tylenol is okay to take for pain. MANAGING PAIN AFTER SPINAL SURGERY 1. Narcotic medication is intended for short-term use and will be provided for surgical pain. Surgical pain usually lasts for a period of 4-6 weeks. Narcotic medication includes Percocet, Vicodin, Darvocet, Tylenol #3 or Lortab. 2. Longer-term pain is more appropriately treated with non-narcotic medication such as Tylenol ES. 3. Muscle spasm is not appropriately treated with narcotics. Muscle relaxers such as Soma, Flexeril or Skelaxin can be used along with Tylenol ES. 4. Remember that we all live with some "aches and pains". This is not unusual or uncommon after an injury or as we get older. a. Back pain is expected and may include muscle spasms for 4 to 6 weeks after surgery. The pain should gradually improve. If the pain worsens for no apparent reason, please contact the office. b. Intermittent leg pain may also be experienced and should not be concerned about unless it worsens for no apparent reason. If so, please contact the office. 5. We will provide appropriate medication within the normal guidelines of their prescribed use. We will also be very cautious and aware of potential abuse and extended duration of patients' medication needs. a. Pain medications are for your comfort and to assist with sleep and rest so that the tissue can heal. They are not provided in order to return to normal activity and should not be used through the day. To do so or worsening pain at night can result from ongoing tissue damage and development of tolerance to the prescribed medicine. 6. Please allow 2-3 days to process refills. Prescriptions will not be mailed but must be picked up at the office. FOLLOW UP VISIT: Keep your scheduled follow-up appointment. Any questions, please call the office at . Pending Studies at Discharge: No Stand-Alone Forms: My e|tab, Smoking Cessation Medications and DC Order Prescriptions: New tramadol 50 mg tablet 50 mg PO Q6H PRN (Reason: pain, moderate) Qty: 30 RF: 0 oxycodone 5 mg tablet 5 mg PO Q6H PRN (Reason: pain, severe) Qty: 30 RF: 0 Continued meloxicam 15 mg tablet 15 mg PO DAILY RF: 0 losartan 50 mg tablet 50 mg PO QAM RF: 0 aspirin [Adult Aspirin Regimen] 81 mg tablet,delayed release (DR/EC) 81 mg PO DAILY RF: 0 simvastatin 20 mg tablet 20 mg PO QPM RF: 0 magnesium oxide 400 mg magnesium tablet 400 mg PO DAILY RF: 0 omeprazole 20 mg capsule,delayed release(DR/EC) 20 mg PO QAM RF: 0 gabapentin 100 mg capsule 100 mg PO TID Qty: 90 RF: 1 sildenafil [Viagra] 50 mg Tablet 50 mg PO DAILY PRN (Reason: intercourse) RF: 0 amlodipine 5 mg Tablet 10 mg PO QAM RF: 0 triamcinolone acetonide 0.1 % Cream 1 applic TOPICAL UD PRN (Reason: SKIN IRRITATION ) RF: 0 metoprolol succinate 25 mg Tablet Extended Release 24 Hr 12.5 mg PO QAM RF: 0 lorazepam 1 mg Tablet 1 mg PO BID PRN (Reason: Anxiety) RF: 0 multivitamin Capsule 1 cap PO QAM RF: 0 Discharge Orders: Discharge Order (Routine); Ordered 08/13/19 Ordered By: Toni Vázquez Admission Data Admit Date/Time: 08/11/19 15:38 Attending Provider: Toni Vázquez Admit Provider: Toni Vázquez Primary Care Provider: Tanner Bright. Other Interventions: Discharge Summary Assessment (RN) Last Done: 08/13/19 11:15 DC Date/Time DO NOT enter until pt leaves facility: 08/13/19 13:15
== END 2019-08-13 13:15 | disposition home or self-care (01) | DRG 455 ==
LOC: ASU 10:29 → 3E 15:38

== ENCOUNTER 2020-09-22 07:33 | Inpatient (IN) ==
--- NOTE | 2020-08-31 10:16 | PAT Medication Instructions ---
Medication Instructions Date of Service August 31, 2020 Home Medications Medication Instructions Recorded gabapentin 100 mg capsule 100 mg PO TID #90 cap 02/05/19 oxycodone 5 mg PO Q6H PRN #30 tab 08/13/19 tramadol 50 mg PO Q6H PRN #30 tab 08/13/19 aspirin 81 mg tablet,delayed release 81 mg PO QAM losartan 50 mg tablet 50 mg PO QAM magnesium oxide 400 mg PO QAM simvastatin 20 mg tablet 20 mg PO QPM amlodipine 10 mg PO QAM lorazepam 1 mg PO BID PRN metoprolol succinate 12.5 mg PO QAM multivitamin 1 cap PO QAM sildenafil [Viagra] 50 mg PO DAILY PRN triamcinolone acetonide 1 applic TOPICAL UD PRN meloxicam 15 mg tablet 15 mg PO QAM omeprazole 20 mg capsule,delayed release 20 mg PO QAM gabapentin 100 mg capsule 100 mg PO TID oxycodone 5 mg PO Q6H PRN tramadol 50 mg PO Q6H PRN ASK your surgeon for instructions meloxicam 15 mg tablet 15 mg PO QAM ASK your prescriber and surgeon aspirin 81 mg tablet,delayed release 81 mg PO QAM STOP taking 24 hours before surgery triamcinolone acetonide 1 applic TOPICAL UD PRN DO NOT take the morning of surgery losartan 50 mg tablet 50 mg PO QAM magnesium oxide 400 mg PO QAM multivitamin 1 cap PO QAM sildenafil [Viagra] 50 mg PO DAILY PRN Take morning of surgery With a small sip of water, OTHERWISE NOTHING TO EAT OR DRINK AFTER MIDNIGHT: amlodipine 10 mg PO QAM lorazepam 1 mg PO BID PRN (if needed) metoprolol succinate 12.5 mg PO QAM omeprazole 20 mg capsule,delayed release 20 mg PO QAM gabapentin 100 mg capsule 100 mg PO TID oxycodone 5 mg PO Q6H PRN (okay to take up to 4 hours prior to surgery if needed) tramadol 50 mg PO Q6H PRN (okay to take up to 4 hours prior to surgery if needed) Take evening before surgery simvastatin 20 mg tablet 20 mg PO QPM lorazepam 1 mg PO BID PRN (if needed) sildenafil [Viagra] 50 mg PO DAILY PRN (if needed) gabapentin 100 mg capsule 100 mg PO TID oxycodone 5 mg PO Q6H PRN (if needed) tramadol 50 mg PO Q6H PRN (if needed) Other Notes If you have any questions please call us at [phone] or [phone] or [phone] or [phone]
--- NOTE | 2020-09-02 12:44 | Anesthesiology Consultation ---
Date of Service September 02, 2020 Assessment & Plan (1) Encounter for pre-operative examination: - Per assessment on 09/02: Travel screen negative. No known COVID-19 positive contacts or current COVID-19 related symptoms. Surgeon arranging preop COVID testing. Awaiting results. - S/P C4 corpectomy, C5-6 ACDF: 05/16/18: Grade 2 view (cricoid pressure to improve view), MAC#4, ETT 8.0 at [facility] (atraumatic, large floppy epiglottis required CCP to see beyond)> ROM is WNL - S/P L4-L5 decompression/fusion: 08/11/19: Grade 3 view, MAC#3, ETT 7.5 at [facility], DVL x1 atraumatic - ASA instructions: per surgeon/prescriber Chart Review Chart Review: Acceptable Risk for Surgery and Patient seen in Pre Admission [facility] Teaching & Discussion Pre-Anesthesia Teaching/Discussion Notes: Instructed NPO after midnight before surgery,except medications with 15 cc of water. Medication instructions provided according to the PAT guidelines. History Surgery Operation Date: 09/22/20 10:25 Proposed Procedures p C6-C7 Anterior Cervical Discectomy and Fusion Spinal Cord Monitoring - Toni Vázquez DO Height/Weight Height: 5 ft 7.5 in Weight: 72.9 kg Allergies Allergy/AdvReac Type Severity Reaction Status Date / Time citalopram Allergy Unknown Unknown Verified 09/02/20 12:44 buspirone AdvReac Intermediate N/V Verified 09/02/20 12:44 Medications Home Medications Medication Instructions Recorded Confirmed Last Taken aspirin 81 mg tablet,delayed 81 mg PO QAM 04/16/18 08/17/20 08/10/19 09:00 release losartan 50 mg tablet 50 mg PO QAM 04/16/18 08/17/20 08/10/19 09:00 magnesium oxide 400 mg PO QAM tab 04/16/18 08/17/20 08/10/19 09:00 simvastatin 20 mg tablet 20 mg PO QPM 04/16/18 08/17/20 08/10/19 20:00 amlodipine 10 mg PO QAM 05/13/18 08/17/20 08/11/19 09:00 lorazepam 1 mg PO BID PRN 05/13/18 08/17/20 08/11/19 09:00 metoprolol succinate 12.5 mg PO QAM 05/13/18 08/17/20 08/11/19 09:00 multivitamin 1 cap PO QAM 05/13/18 08/17/20 08/10/19 09:00 sildenafil [Viagra] 50 mg PO DAILY PRN 05/13/18 08/17/20 Unknown triamcinolone acetonide 1 applic TOPICAL UD PRN 05/13/18 08/17/20 Unknown meloxicam 15 mg tablet 15 mg PO QAM 08/08/18 08/17/20 08/10/19 09:00 omeprazole 20 mg capsule,delayed 20 mg PO QAM 09/30/18 08/17/20 08/10/19 20:00 release gabapentin 100 mg capsule 100 mg PO TID #90 cap 02/05/19 08/17/20 08/11/19 09:00 oxycodone 5 mg PO Q6H PRN #30 tab 08/13/19 08/17/20 Unknown tramadol 50 mg PO Q6H PRN #30 tab 08/13/19 08/17/20 Unknown Past Medical History Medical History Acid reflux controlled Anxiety Cavernous malformation incidental findings on brain imaging/under surveillance Degenerative disc disease Dyslipidemia Hypertension Lumbar spinal stenosis PVC (premature ventricular contraction) resolved with Metoprolol Exercise / Class Metabolic Activity II 4-5 Yardwork/Stairs/Walk up hill Past Surgical History Surgical History Cervical vertebral fusion C4 corpectomy, C5-6 ACDF: 05/16/18: Grade 2 view (cricoid pressure to improve view), MAC#4, ETT 8.0 at [facility] (atraumatic, large floppy epiglottis required CCP to see beyond)> ROM is WNL H/O arthroscopic knee surgery R/L History of cataract surgery left History of lumbar fusion L4-L5 decompression/fusion: 08/11/19: Grade 3 view, MAC#3, ETT 7.5 at [facility], DVL x1 atraumatic History of tonsillectomy Hx of appendectomy Hx of colonoscopy Hx of eye surgery Left macular pouch surgery (2014; [facility]) Past Anesthesia History No Hx of Anesthesia Complications and No Family Hx of Anesthesia Complications History of PONV No Hx of PONV and No Hx of Motion Sickness Social History Smoking Status: Former smoker tobacco type: cigarettes Do You Dip or Chew Tobacco: No Smoking End Date: Quit 40 years ago (hx 1 PPD x 5 years in college) Hx Alcohol Use: Yes Alcohol type: wine alcohol intake frequency: 0-2 drinks per day (2 glasses wine/evening) Hx Substance Use: No substance use type: does not use Review of Systems Patient denies chest pain, shortness of breath, dyspnea on exertion, joint pain, reflux, cough, wheezing, palpitations. Physical Exam Vital Signs VITALS BP 156/83 (pt reports systolic reading typically in the 120's) P 73 TEMP 98.5 SP02 99%RA RESP 16 PHYSICAL Mildly decreased cervical extension Full TMJ range of motion. TMD 3.5 finger breaths Mallampati Score 1 Dentition: missing sides, chipped right upper side per patient Lungs: clear throughout to auscultation Cardiac: regular rate and rhythm, no murmurs noted Spine: normal Carotid arteries: negative bruit Extremities: no edema Testing Laboratory Results 09/02/20 13:05 09/02/20 13:52 PT 10.5 Seconds (9.0-12.0) 09/02/20 13:05 INR 1.0 (0.9-1.1) 09/02/20 13:05 APTT 25.2 Seconds (21.0-31.0) 09/02/20 13:05 Urine Color Yellow 09/02/20 Unknown Urine Appearance Clear (Clear) 09/02/20 Unknown Urine pH 7.0 (4.5-7.5) 09/02/20 Unknown Ur Specific [place] 1.016 (1.000-1.030) 09/02/20 Unknown Urine Protein Negative (Negative) 09/02/20 Unknown Urine Glucose (UA) Negative (Negative) 09/02/20 Unknown Urine Ketones Trace (Negative) H 09/02/20 Unknown Urine Nitrite Negative (Negative) 09/02/20 Unknown Ur Leukocyte Esterase Negative (Negative) 09/02/20 Unknown Urine WBC (Auto) 0 /hpf (0-5) 09/02/20 Unknown Urine RBC (Auto) 0-4 /hpf (0-4) 09/02/20 Unknown U Hyaline Cast (Auto) 1-5 /lpf (0-5) 09/02/20 Unknown U Epithel Cells (Auto) 0-5 /lpf (0-5) 09/02/20 Unknown Urine Bacteria (Auto) Negative (Negative) 09/02/20 Unknown Blood Type A Positive 09/02/20 13:05 Antibody Screen NEGATIVE 09/02/20 13:05 Electrocardiogram Date: 09/02/20 NSR at 61bpm. unconfirmed report. Chest X-Ray Date: 09/02/20 FINDINGS: Lung volumes are normal. Lungs are clear. There is no pneumothorax or pleural effusion. Cardiac size is normal. Mediastinal contours are normal. There is no evidence for pulmonary edema. Anterior cervical spine fusion is partially imaged. Lumbar spine fusion hardware is also partially imaged. IMPRESSION: No acute cardiopulmonary findings.
--- NOTE | 2020-09-02 13:34 | XRay Report ---
XR chest Pre-admission PA/Lat CLINICAL HISTORY: Preoperative evaluation. COMPARISON STUDY: Chest radiograph 07/29/2019. FINDINGS: Lung volumes are normal. Lungs are clear. There is no pneumothorax or pleural effusion. Car diac size is normal. Mediastinal contours are normal. There is no evidence for pulmonary edema. Anter ior cervical spine fusion is partially imaged. Lumbar spine fusion hardware is also partially imaged. IMPRESSION: No acute cardiopulmonary findings. ACT 112: Negative or not required by law. Electronically signed by: Dallas Lucio M.D. 09/02/2020 1:32 PM
[2020-09-02 13:50] LABS: Basophils # (auto) 0.03 K/uL (0-0.2); Basophils % (auto) 0.4 %; Eosinophils # (auto) 0.82 K/uL (0-0.5); Eosinophils % (auto) 11.4 %; Hemoglobin 13.8 g/dL (14.0-18.0); Immature Granulocytes # (auto) 0.01 K/uL (0.00-0.02); Immature Granulocytes % (auto) 0.1 %; Lymphocytes # (auto) 1.89 K/uL (1.2-3.4); Lymphocytes % (auto) 26.4 %; Mean Corpuscular Hemoglobin 32.2 pg (25-34); Mean Corpuscular Hgb Conc 33.7 g/dL (32-36); Mean Corpuscular Volume 95.8 fL (80-100); Mean Platelet Volume 10.1 fL (7.4-10.4); Monocytes # (auto) 0.75 K/uL (0.11-0.59); Monocytes % (auto) 10.5 %; Neutrophils # (auto) 3.67 K/uL (1.4-6.5); Neutrophils % (auto) 51.2 %; Platelet Count 277 K/uL (130-400); RDW Coefficient of Variation 13.8 % (11.5-14.5); RDW Standard Deviation 48.3 fL (36.4-46.3); Red Blood Count 4.28 M/uL (4.7-6.1); White Blood Count 7.17 K/uL (4.8-10.8)
[2020-09-02 14:00] LABS: Partial Thromboplastin Time 25.2 Seconds (21.0-31.0); Prothrombin Time 10.5 Seconds (9.0-12.0)
[2020-09-02 14:32] LABS: BUN Creatinine Ratio 15.4 (10-20); Calcium 9.6 mg/dl (8.5-10.1); Est GFR (African American) 102.9; Est GFR (Non-African American) 88.8; Potassium 4.6 mmol/L (3.5-5.1)
[2020-09-02 14:53] LABS: Appearance Urine Clear (Clear); Bacteria Urine Automated Negative (Negative); Bilirubin Urine Negative (Negative); Blood Urine Negative (Negative); Color Urine Yellow; Epithelial Cell Urine Auto 0-5 /lpf (0-5); Glucose Urine UA Negative (Negative); Ketones Urine Trace (Negative); Leukocyte Esterase Urine Negative (Negative); Nitrite Urine Negative (Negative); Protein Urine Negative (Negative); RBC Urine Automated 0-4 /hpf (0-4); Specific Gravity Urine 1.016 (1.000-1.030); Urobilinogen Urine Negative (Negative); WBC Urine Automated 0 /hpf (0-5)
--- NOTE | 2020-09-03 05:50 | Electrocardiogram Report ---
Test Reason : Blood Pressure : / mmHG Vent. Rate : 061 BPM Atrial Rate : 061 BPM P-R Int : 188 ms QRS Dur : 098 ms QT Int : 426 ms P-R-T Axes : 072 043 031 degrees QTc Int : 428 ms Normal sinus rhythm Normal ECG When compared with ECG of 04-NOV-2017 15:41, Premature ventricular complexes are no longer Present Criteria for Septal infarct are no longer Present Confirmed by Naveed Espinal ([id number]) on 09/03/2020 5:50:06 AM Referred By: Toni Vázquez Confirmed By:Naveed Espinal
[~2020-09-22 07:33] MED LIST changes: -CEFAZOLIN 1000MG 1,000 MG/7.5 ML SYR IV SCH; +GLYCOPYRROLATE 0.2 MG/ML VIAL ONE; +KETAMINE 50 MG/5 ML SYRINGE ONE; +LIDOCAINE HCL 2% 2 ML VIAL/AMP(20MG/ML) INFIL ONE; +MIDAZOLAM HCL 1 MG/ML 2ML VIAL ONE; +NEOSTIGMINE METHYLSULFATE 1 MG/ML 10ML VIAL ONE; +PROPOFOL IV EMULSION 10 MG/ML 20 ML VIAL IV ONE; +ROCURONIUM BROMIDE 10 MG/ML 5 ML VIAL IV ONE; +ceFAZolin 1000MG 1,000 MG/7.5 ML SYR IV SCH; +fentaNYL citrate 100 MCG/2 ML VIAL ONE
--- NOTE | 2020-09-22 07:45 | History & Physical Bridge Note ---
Date of Service September 22, 2020 History & Physical Bridge Note I have examined the patient, reviewed the History & Physical and in the interval since the performance of the History & Physical I have noted the following changes of clinical significance: no changes noted
--- NOTE | 2020-09-22 07:50 | History & Physical Report ---
Date of Service September 22, 2020 Assessment & Plan (1) Cervical stenosis of spinal canal: Admission and Anticipated Discharge Date Admission Date: C6-C7 anterior cervical discectomy and fusion History of Present Illness Chief Complaint: Neck and arm pain Primary Care Provider: Tanner Bright DO This is a 64 old male who presents with chronic persistent neck and arm pain. Failing course of nonoperative care is here for surgical invention. Allergies Allergy/AdvReac Type Severity Reaction Status Date / Time citalopram Allergy Unknown Unknown Verified 09/02/20 12:44 buspirone AdvReac Intermediate N/V Verified 09/02/20 12:44 Home Medications Medication Instructions Recorded Confirmed Type aspirin 81 mg tablet,delayed 81 mg PO QAM 04/16/18 08/17/20 History release losartan 50 mg tablet 50 mg PO QAM 04/16/18 08/17/20 History magnesium oxide 400 mg PO QAM tab 04/16/18 08/17/20 History simvastatin 20 mg tablet 20 mg PO QPM 04/16/18 08/17/20 History amlodipine 10 mg PO QAM 05/13/18 08/17/20 History lorazepam 1 mg PO BID PRN 05/13/18 08/17/20 History metoprolol succinate 12.5 mg PO QAM 05/13/18 08/17/20 History multivitamin 1 cap PO QAM 05/13/18 08/17/20 History sildenafil [Viagra] 50 mg PO DAILY PRN 05/13/18 08/17/20 History triamcinolone acetonide 1 applic TOPICAL UD PRN 05/13/18 08/17/20 History meloxicam 15 mg tablet 15 mg PO QAM 08/08/18 08/17/20 History omeprazole 20 mg capsule,delayed 20 mg PO QAM 09/30/18 08/17/20 History release gabapentin 100 mg capsule 100 mg PO TID #90 cap 02/05/19 08/17/20 Rx oxycodone 5 mg PO Q6H PRN #30 tab 08/13/19 08/17/20 Rx tramadol 50 mg PO Q6H PRN #30 tab 08/13/19 08/17/20 Rx Past Med/Surg History Medical History Acid reflux controlled Anxiety Cavernous malformation incidental findings on brain imaging/under surveillance Degenerative disc disease Dyslipidemia Hypertension Lumbar spinal stenosis PVC (premature ventricular contraction) resolved with Metoprolol Surgical History Cervical vertebral fusion C4 corpectomy, C5-6 ACDF: 05/16/18: Grade 2 view (cricoid pressure to improve view), MAC#4, ETT 8.0 at [facility] (atraumatic, large floppy epiglottis required CCP to see beyond)> ROM is WNL H/O arthroscopic knee surgery R/L History of cataract surgery left History of lumbar fusion L4-L5 decompression/fusion: 08/11/19: Grade 3 view, MAC#3, ETT 7.5 at [facility], DVL x1 atraumatic History of tonsillectomy Hx of appendectomy Hx of colonoscopy Hx of eye surgery Left macular pouch surgery (2014; [facility]) Social History Smoking Status: Former smoker Smoking End Date: Quit 40 years ago (hx 1 PPD x 5 years in college); Second Hand Exposure: No; Do You Dip or Chew Tobacco: No; Tobacco Cessation Education Requested by Patient: No Hx Alcohol Use: Yes Alcohol type: wine Hx Substance Use: No Preferred Language: French Communication Ability: Effective Visual Impairment: No Limitations Extrusion Engineer Required: No Beliefs That Will Affect Care: None Current Living Situation: Spouse Other Information That Helps Us Care for You: No Feels Safe at Home: Yes Safety Concerns: Feels Safe At This Time Assistive Devices: Glasses Physical Exam Physical Exam: Patient is alert and oriented Heart regular in rhythm Lungs clear to auscultation
[2020-09-22] MEDS ORDERED: BACITRACIN INJ 50,000 UNIT VIAL ONE (08:26)
[2020-09-22] MEDS ORDERED: LABETALOL HCL IV 5 MG/ML 20ML IV PRN (08:45)
[2020-09-22] MEDS ORDERED: ATROPINE SULFATE 0.1 MG/ML 10ML SYR IV PRN (08:45)
[2020-09-22] MEDS ORDERED: ONDANSETRON INJ 2 MG/ML 2 ML VIAL IV PRN ×2 (08:45→11:34)
[2020-09-22] MEDS ORDERED: PROMETHAZINE HCL 12.5 MG in SODIUM CHLORIDE 0.9% 50 ML IV PRN ×2 (08:45→11:34)
[2020-09-22] MEDS ORDERED: ePHEDrine sulfate 50 MG/ML SYR ONE (09:25)
[2020-09-22] MEDS ORDERED: SUCCINYLCHOLINE 100MG/5ML SYR IV ONE (09:25)
[2020-09-22] MEDS ORDERED: FLOSEAL HEMOSTATIC MATRIX 10ML TOP ONE (09:51)
--- NOTE | 2020-09-22 10:01 | Operative Report ---
Post Operative Report Pre & Post Diagnosis Operation Date: 09/22/20 10:05 Pre-Op Diagnosis: Spinal Stenosis, Cervical Region Post-Op Diagnosis: Spinal Stenosis, Cervical Region I identified the patient and participated in the time-out.: Yes Procedure Operation Date: 09/22/20 10:05 Actual Procedures #1 intracervical discectomy with bilateral foraminotomies C6-C7. #2 anterior cervical arthrodesis C6-C7. #3 placement of 8 mm spiral cage filled with I factor at C6-C7. #4 application of 5 complete screws across C6-C7. Surgeon Toni Vázquez, Car Varnisher Brittaney Raoms Estimated Blood Loss 10 Findings Consistent with Post-Op Diagnosis Specimens None Indications This is a 64-year-old male known to me the presents with above-mentioned diagnosis after failing course of nonoperative care is here for their above- mentioned procedure. Description of Procedure Patient was met with identified informed consent obtained. Patient was then taken to the operative suite underwent a patient placed in a supine position the Kvng table at [place] hogshead hand. All bony prominences well-padded eyes inspected to ensure no external pressure placed upon the bed at this point the anterior cervical spine was prepped and draped in a sterile fashion. The assistance of fluoroscopy identified the C6-C7 disc base. Transverse incision was placed along the right anterior aspect of the cervical spine overlying this region. Sharp dissection with the assistance of bipolar electrocautery was performed down to and exposing the anterior cervical spine at C6-7. Self- retaining retractors placed. I then performed a complete discectomy of C6-C7 out to the uncovertebral's bilaterally. Bliss distracting pins were utilized to assist in visualization. Removed all posterior annular fibers and longitudinal ligament bilateral foraminotomies performed. Endplates then burred to subcortical bone. A 8 mm spiral cage filled with I factor was then tapped in position. Distracting apparatus was removed. I then placed a 14 mm 5 complete screws with the assistance of fluoroscopy. The incision was then copiously irrigated explored to ensure no damage to surrounding structure remaining bleeding. 10 round FERNANDA drain inserted. The incision was then closed with 2 Vicryl in a fashion of 4 Monocryl for final skin closure. Steri-Strip sterile dressings placed. Patient will continue PACU stable condition. Please note spinal cord monitoring was utilized at the procedure no changes noted. Lastly Brittaney Ramos was present at time of surgery involved in patient positioning complex portions of the surgery and final skin closure. I attest to the content of the Intraoperative Record and any orders documented therein. Any exceptions are noted below.
--- NOTE | 2020-09-22 10:30 | Fluoroscopy Report ---
FL cervical 2-3V CLINICAL HISTORY: Anterior cervical discectomy and fusion. COMPARISON STUDY: Fluoroscopic images of the cervical spine May 16, 2018. FLUOROSCOPY TIME: 12 seconds. FLUOROSCOPIC IMAGES: 2 FINDINGS: Previous C4 corpectomy is noted. Multilevel discectomy and fusion is noted. Exact localizat ion on this examination. The hardware is intact. Surgical drain is in place. Sponge marker on the ini tial image was not present on the final image. IMPRESSION: Fluoroscopy provided during anterior discectomy and fusion. ACT 112: Negative or not required by law. Electronically signed by: Dallas Lucio M.D. 09/22/2020 10:28 AM
[2020-09-22] MEDS: HYDROmorphone INJ 1 MG/ML SYRINGE IV PRN ×2 (10:35→10:42)
[2020-09-22] MEDS ORDERED: DO NOT ADMINISTER PNEUMOCOCCAL VACCINE PRN (11:34)
[2020-09-22] MEDS ORDERED: ONDANSETRON 4 MG OD TAB PO PRN (11:34)
[2020-09-22] MEDS ORDERED: ALUMINUM/MAGNESIUM SUSP 30 ML UDC PO PRN (11:34)
[2020-09-22] MEDS ORDERED: FAMOTIDINE 20 MG TAB PO PRN (11:34)
[2020-09-22] MEDS ORDERED: NALOXONE HCL 0.4 MG/1 ML VIAL/CARP IV PRN (11:34)
[2020-09-22] MEDS ORDERED: HYDROmorphone INJ 0.5 MG/0.5 ML SYR IV PRN (11:34)
[2020-09-22] MEDS ORDERED: TRIAMCINOLONE ACET 0.1% CR 15 GM TUBE TOP PRN (11:34)
[2020-09-22] MEDS ORDERED: RACEPINEPHRINE 2.25% NEBU SOLN 0.5 ML VIAL INH PRN (11:34)
[2020-09-22] MEDS ORDERED: HYDROmorphone INJ 1 MG/ML SYRINGE IV PRN (11:34)
[2020-09-22] MEDS ORDERED: ACETAMINOPHEN 500 MG TAB PO PRN (11:34)
[2020-09-22] MEDS ORDERED: MAGNESIUM HYDROXIDE SUSP 30 ML UDC PO PRN (11:34)
[2020-09-22] MEDS ORDERED: ATIVAN 1MG HOMEPACK PO PRN (11:34)
[2020-09-22] MEDS ORDERED: oxyCODONE HCL IR 5 MG TAB (IMMEDIATE RELEASE) PO PRN (11:34)
[2020-09-22] MEDS ORDERED: dexAMETHasone 8 MG in SYRINGE 0 ML IV PRN (11:34)
[2020-09-22] MEDS ORDERED: DO NOT ADMINISTER FLU VACCINE PRN (11:34)
[2020-09-22] MEDS ORDERED: diphenhydrAMINE Capsule 25 MG CAP PO PRN (11:34)
[2020-09-22] MEDS ORDERED: SOD PHOSPHATE/SOD BIPHOSPHATE ENEMA 132 ML BTL PR PRN (11:34)
[2020-09-22] MEDS ORDERED: ACETAMINOPHEN 1,000 MG/100 ML VIAL IV PRN (11:34)
[2020-09-22] MEDS ORDERED: METOCLOPRAMIDE HCL INJ 5 MG/ML 2 ML VIAL IV PRN (11:34)
[2020-09-22] MEDS ORDERED: hydrOXYzine HCl 25 MG TAB PO PRN (11:34)
[2020-09-22] MEDS ORDERED: LORazepam 0.5 MG/1 ML VIAL IV PRN (11:34)
[2020-09-22] MEDS: LACTATED RINGER'S 1,000 ML IV SCH ×2 (12:21→21:28)
--- NOTE | 2020-09-22 12:55 | Anesthesiology Progress Note ---
Date of Service September 22, 2020 Anesthesia Post Procedure Vital Signs Vital Signs: Temp Pulse Pulse Resp BP Pulse Ox Pulse Ox 09/22/20 12:24 36.4 C L 68 20 112/73 99 09/22/20 11:55 36.7 C 61 18 114/72 99 09/22/20 11:34 63 16 93 99 09/22/20 11:25 36.4 C L 61 18 122/79 99 99 09/22/20 11:10 60 15 113/73 99 09/22/20 11:00 36.5 C 58 L 19 122/71 98 09/22/20 10:50 62 12 115/73 100 09/22/20 10:40 65 15 119/66 100 09/22/20 10:30 69 14 112/77 99 09/22/20 10:20 74 13 117/73 99 09/22/20 10:11 36.2 C L 85 13 129/92 98 09/22/20 08:16 36.8 C 75 18 134/81 98 Pain Intensity Lower Back: Pain Intensity: 3 Neck: Pain Intensity: 1 Transfer of Care Handoff Completed per policy Notes Mental Status: alert / awake / arousable Patient Amnestic to Procedure: Yes Nausea / Vomiting: adequately controlled Pain: adequately controlled Airway Patency, RR, SpO2: stable & adequate BP & HR: stable & adequate Hydration State: stable & adequate Anesthetic Complications: no major complications apparent
[2020-09-22] MEDS: GABAPENTIN 100 MG CAP PO SCH ×2 (13:21→20:41)
[2020-09-22] MEDS: ceFAZolin 2000MG 2,000 MG/15 ML SYR IV SCH (17:19)
[2020-09-22] MEDS: traMADol HCL 50 MG TABLET PO PRN (18:26)
[2020-09-22] MEDS: LORazepam 0.5 MG TAB PO PRN (20:49)
[2020-09-22] MEDS ORDERED: SIMVASTATIN 20 MG TAB PO SCH (21:00)
[2020-09-22] MEDS ORDERED: DOCUSATE SODIUM/SENNA 50/8.6MG TAB PO SCH (21:00)
[2020-09-23] MEDS: ceFAZolin 2000MG 2,000 MG/15 ML SYR IV SCH (00:49)
[2020-09-23] MEDS: traMADol HCL 50 MG TABLET PO PRN (02:27)
[2020-09-23] MEDS ORDERED: POLYETHYLENE (MIRALAX) 17 GM PACK PO SCH (06:00)
[2020-09-23] MEDS: GABAPENTIN 100 MG CAP PO SCH (08:25)
[2020-09-23] MEDS: LORazepam 0.5 MG TAB PO PRN (08:30)
--- NOTE | 2020-09-23 08:50 | Anesthesiology Progress Note ---
Date of Service September 23, 2020 Anesthesia Post Procedure Vital Signs Vital Signs: Temp Pulse Pulse Pulse Resp BP BP 09/23/20 07:50 71 16 09/23/20 07:33 36.6 C 59 L 16 125/72 09/23/20 06:28 36.6 C 124 H 14 124/71 09/23/20 04:13 36.6 C 71 14 149/86 H 09/23/20 02:17 36.5 C 72 14 142/80 H 09/23/20 02:00 60 14 09/23/20 00:41 36.6 C 53 L 14 129/71 09/22/20 22:48 60 14 09/22/20 22:44 59 L 16 09/22/20 22:13 36.5 C 57 L 13 121/77 09/22/20 20:34 36.5 C 58 L 14 128/76 09/22/20 19:45 68 16 09/22/20 18:21 36.6 C 62 18 110/72 09/22/20 16:25 36.6 C 65 18 108/72 09/22/20 15:39 36.3 C L 72 17 102/63 09/22/20 15:04 68 15 09/22/20 14:25 36.4 C L 76 18 113/71 09/22/20 13:25 36.3 C L 71 18 117/76 09/22/20 12:24 36.4 C L 68 20 112/73 09/22/20 11:55 36.7 C 61 18 114/72 09/22/20 11:34 63 16 09/22/20 11:25 36.4 C L 61 18 122/79 09/22/20 11:10 60 15 113/73 09/22/20 11:00 36.5 C 58 L 19 122/71 09/22/20 10:50 62 12 115/73 09/22/20 10:40 65 15 119/66 09/22/20 10:30 69 14 112/77 09/22/20 10:20 74 13 117/73 09/22/20 10:11 36.2 C L 85 13 129/92 Pulse Ox Pulse Ox 09/23/20 07:50 96 09/23/20 07:33 94 09/23/20 06:28 97 09/23/20 04:13 99 09/23/20 02:17 99 09/23/20 02:00 98 09/23/20 00:41 96 09/22/20 22:48 99 09/22/20 22:44 98 09/22/20 22:13 99 09/22/20 20:34 98 09/22/20 19:45 100 09/22/20 18:21 100 09/22/20 16:25 99 09/22/20 15:39 97 09/22/20 15:04 98 09/22/20 14:25 99 09/22/20 13:25 99 09/22/20 12:24 99 09/22/20 11:55 99 09/22/20 11:34 93 99 09/22/20 11:25 99 99 09/22/20 11:10 99 09/22/20 11:00 98 09/22/20 10:50 100 09/22/20 10:40 100 09/22/20 10:30 99 09/22/20 10:20 99 09/22/20 10:11 98 Pain Intensity Lower Back: Pain Intensity: 2 Neck: Pain Intensity: 2 Notes Mental Status: alert / awake / arousable and participated in evaluation Patient Amnestic to Procedure: Yes Nausea / Vomiting: adequately controlled Pain: adequately controlled Airway Patency, RR, SpO2: stable & adequate BP & HR: stable & adequate Hydration State: stable & adequate Anesthetic Complications: no major complications apparent
[2020-09-23] MEDS ORDERED: MAGNESIUM OXIDE 400 MG TAB PO SCH (09:00)
[2020-09-23] MEDS ORDERED: amLODIPine BESYLATE 5 MG TAB PO SCH (09:00)
[2020-09-23] MEDS ORDERED: MULTIVITAMIN TAB PO SCH (09:00)
[2020-09-23] MEDS ORDERED: LOSARTAN POTASSIUM 50 MG TAB PO SCH (09:00)
[2020-09-23] MEDS ORDERED: PANTOprazole 40 MG TAB PO SCH (09:00)
[2020-09-23] MEDS ORDERED: ASPIRIN 81 MG ECTAB PO SCH (09:00)
[2020-09-23] MEDS ORDERED: METOPROLOL SUCC 25MG EXT REL TAB PO SCH (09:00)
--- NOTE | 2020-09-23 12:01 | Discharge Summary ---
Date of Service September 23, 2020 Admission HPI Per Admitting Provider This is a 64 old male who presents with chronic persistent neck and arm pain. Failing course of nonoperative care is here for surgical invention. Principal Diagnosis Cervical spinal stenosis with radiculopathy Discharge Data Allergies Allergy/AdvReac Type Severity Reaction Status Date / Time citalopram Allergy Unknown Unknown Verified 09/02/20 12:44 buspirone AdvReac Intermediate N/V Verified 09/02/20 12:44 Procedures Performed Operation Date: 09/22/20 10:05 Actual Procedures p C6-C7 Anterior Cervical Discectomy and Fusion with Spinal Cord Monitoring(Not Applicable) - Toni Vázquez DO Ordered Studies 09/22/20 10:05 FL cervical 2-3V Routine FL fluoroscopy <1hr Routine Hospital Course (1) Cervical stenosis of spinal canal: Patient went anterior cervical discectomy and fusion tolerated this well was taken to orthopedic floor postoperative postop day 1 he was swallowing well. Pain was well controlled. FERNANDA drain decreasing probably. Section strength testing. Subsequent discharge home. Discharge orders instructions from the chart for further review. Total Time Total Time Spent Total Time Spent (In Minutes): 20 minutes Discharge Plan Discharge Items Patient Disposition: Home - Self-Care Reason For Visit: Spinal Stenosis, Cervical Region Discharge Diagnosis: Cervical spinal stenosis with radiculopathy Activity: As commented below Non-emergency contact: Primary Care Provider Call non-emergency contact if: you have any medication questions Follow-up/Referrals: Tanner Bright DO [Primary Care Provider] - Diet: Regular Addtl Attending Provider Instructions: ACTIVITY RECOMMENDATIONS: SELF CARE INSTRUCTIONS AFTER CERVICAL FUSIONS 1. No smoking. Smoking drastically decreases the chance of a solid fusion. 2. No bending, lifting more than 5 pounds, or twisting (roll like a log when turning in bed). 3. You may shower 3 days after surgery. Thoroughly dry wound. Do not soak in the tub. 4. Cervical collar: Must be worn at all times including sleeping. You may remove the brace only to bath, eat and if you are sitting in a recliner. 5. Please walk as much as you can for exercise. Gradually increase the distance that you walk as your endurance increases. SPECIAL CARE INSTRUCTIONS: VERY IMPORTANT TO READ AND REVIEW A. Do not take any anti-inflammatory medications (i.e. Indocin, Advil, Aspirin, Naprosyn, Aleve, Motrin, etc.) as these may inhibit the chance of a solid fusion. Tylenol is okay to take. B. Your surgical incision has been closed with a cosmetic suture under the skin that will dissolve in about 6 weeks. In 14 days, you can use a pair of clean scissors and cut the suture that is left outside of the skin at the ends of your incision. C. Complications are uncommon, but please contact us if you have any signs or symptoms of: 1. wound infection (fever higher than 102.5 degrees F, redness, separation of wound, drainage, or increasing pain from the incision) 2. blood clots in legs (pain, swelling, redness and warmth in legs) 3. urinary tract infection (fever higher than 102.5 degrees, burning upon urination or increased frequency of urination) 4. nerve problems (inability to walk on your toes or heels, numbness, loss of bowel or bladder control) 5. any other symptoms that concern you. D. Please call the office at if you have any concerns or questions about your operation or recovery. MANAGING PAIN AFTER SPINAL SURGERY 1. Narcotic medication is intended for short-term use and will be provided for surgical pain. Surgical pain usually lasts for a period of 4-6 weeks. Narcotic medication includes Percocet, Vicodin, Darvocet, Tylenol #3 or Lortab. 2. Longer-term pain is more appropriately treated with non-narcotic medication such as Tylenol ES. 3. Muscle spasm is not appropriately treated with narcotics. Muscle relaxers such as Soma, Flexeril or Skelaxin can be used along with Tylenol ES. 4. Remember that we all live with some "aches and pains". This is not unusual or uncommon after an injury or as we get older. 5. We will provide appropriate medication within the normal guidelines of their prescribed use. We will also be very cautious and aware of potential abuse and extended duration of patients' medication needs. 6. Please allow 2-3 days to process refills. Prescriptions will not be mailed but must be picked up at the office. FOLLOW UP VISIT: Keep your scheduled follow-up appointment. Any questions, please call the office at . Pending Studies at Discharge: No Stand-Alone Forms: [facility], Opioid Pain Management, Smoking Cessation Medications and DC Order Prescriptions: New oxycodone 5 mg tablet 5 mg PO Q6H PRN (Reason: pain, severe) Qty: 20 RF: 0 tramadol 50 mg tablet 50 mg PO Q6H PRN (Reason: pain, moderate) Qty: 20 RF: 0 Continued meloxicam 15 mg tablet 15 mg PO QAM RF: 0 losartan 50 mg tablet 50 mg PO QAM RF: 0 aspirin [Adult Aspirin Regimen] 81 mg tablet,delayed release (DR/EC) 81 mg PO QAM RF: 0 simvastatin 20 mg tablet 20 mg PO QPM RF: 0 magnesium oxide 400 mg magnesium tablet 400 mg PO QAM RF: 0 omeprazole 20 mg capsule,delayed release(DR/EC) 20 mg PO QAM RF: 0 gabapentin 100 mg capsule 100 mg PO TID Qty: 90 RF: 1 sildenafil [Viagra] 50 mg Tablet 50 mg PO DAILY PRN (Reason: intercourse) RF: 0 amlodipine 5 mg Tablet 10 mg PO QAM RF: 0 triamcinolone acetonide 0.1 % Cream 1 applic TOPICAL UD PRN (Reason: SKIN IRRITATION ) RF: 0 metoprolol succinate 25 mg Tablet Extended Release 24 Hr 12.5 mg PO QAM RF: 0 lorazepam 1 mg Tablet 1 mg PO BID PRN (Reason: Anxiety) RF: 0 multivitamin Capsule 1 cap PO QAM RF: 0 tramadol 50 mg tablet 50 mg PO Q6H PRN (Reason: pain, moderate) Qty: 30 RF: 0 oxycodone 5 mg tablet 5 mg PO Q6H PRN (Reason: pain, severe) Qty: 30 RF: 0 Discharge Orders: Discharge Order (Routine); Ordered 09/23/20 Ordered By: Toni Palomo/Other Patient Handouts: DVT Post Op Prevention Admission Data Admit Date/Time: 09/22/20 10:17 Attending Provider: Toni Vázquez Admit Provider: Toni Vázquez Primary Care Provider: Tanner Bright Other Interventions: Discharge Summary Assessment (RN) Last Done: 09/23/20 10:01
[2020-09-24] MEDS ORDERED: bisacodyL 10 MG SUPP PR PRN (10:02)
== END 2020-09-23 10:57 | disposition home or self-care (01) | DRG 520 ==
LOC: ASU 07:33 → 3E 10:17

== ENCOUNTER 2021-07-22 06:14 | Inpatient (IN) ==
--- NOTE | 2021-06-29 11:42 | PAT Medication Instructions ---
Medication Instructions Date of Service June 29, 2021 Home Medications aspirin 81 mg tablet,delayed release (Adult Aspirin Regimen) 81 mg PO QAM losartan 50 mg tablet 50 mg PO QAM magnesium oxide 400 mg PO QAM simvastatin 20 mg tablet 20 mg PO QPM amlodipine 5 mg tablet 10 mg PO QAM lorazepam 1 mg tablet 1 mg PO BID PRN metoprolol succinate 25 mg tablet,extended release 24 hr 12.5 mg PO QAM multivitamin 1 cap PO QAM sildenafil 50 mg tablet (Viagra) 50 mg PO DAILY PRN triamcinolone acetonide 0.1 % topical cream 1 applic TOPICAL UD PRN meloxicam 15 mg tablet 15 mg PO QAM omeprazole 20 mg capsule,delayed release 20 mg PO QPM diclofenac sodium 75 mg tablet,delayed release 75 mg PO BID gabapentin 100 mg capsule 300 mg PO BID ASK your surgeon for instructions meloxicam 15 mg tablet 15 mg PO QAM diclofenac sodium 75 mg tablet,delayed release 75 mg PO BID ASK your prescriber and surgeon aspirin 81 mg tablet,delayed release (Adult Aspirin Regimen) 81 mg PO QAM STOP taking 24 hours before surgery triamcinolone acetonide 0.1 % topical cream 1 applic TOPICAL UD PRN DO NOT take the morning of surgery losartan 50 mg tablet 50 mg PO QAM magnesium oxide 400 mg PO QAM multivitamin 1 cap PO QAM sildenafil 50 mg tablet (Viagra) 50 mg PO DAILY PRN Take morning of surgery With a small sip of water, OTHERWISE NOTHING TO EAT OR DRINK AFTER MIDNIGHT: amlodipine 5 mg tablet 10 mg PO QAM lorazepam 1 mg tablet 1 mg PO BID PRN(if needed) metoprolol succinate 25 mg tablet,extended release 24 hr 12.5 mg PO QAM gabapentin 100 mg capsule 300 mg PO BID Take evening before surgery simvastatin 20 mg tablet 20 mg PO QPM lorazepam 1 mg tablet 1 mg PO BID PRN(if needed) omeprazole 20 mg capsule,delayed release 20 mg PO QPM gabapentin 100 mg capsule 300 mg PO BID Other Notes If you have any questions please call us at [phone] or [phone] or [phone] or [phone]
--- NOTE | 2021-07-08 10:34 | Anesthesiology Consultation ---
Date of Service July 08, 2021 Assessment & Plan (1) Encounter for pre-operative examination: - surgeon ordered medical clearance. - anesthesia record C4 corpectomy, C5-6 ACDF: 05/16/18: Grade 2 view (cricoid pressure to improve view), MAC#4, ETT 8.0 at [facility] (atraumatic, large floppy epiglottis required CCP to see beyond)> ROM is WNL. C6-C7 ACDF 09/22/2020: Grade 1 view, Glidescope #3, ETT#8.0. No issues per anesthesia postop progress note. - COVID screening: Per assessment on 07/08/2021: Travel screen negative, no known COVID-19 positive contacts or current COVID-19 related symptoms in past 2 weeks. Patient vaccinated. Surgeon arranging preop COVID testing, scheduled 07/20/2021 [place] Awaiting results. Chart Review Chart Review: Acceptable Risk for Surgery (pending medical clearance) and Patient seen in Pre Admission Testing Teaching & Discussion Pre-Anesthesia Teaching/Discussion Notes: Instructed NPO after midnight before surgery, except medications with 15 cc of water. Medication instructions provided according to the PAT guidelines. History Surgery Operation Date: 07/22/21 10:05 Proposed Procedures p L3-L4 Decompression Fusion, L4-L5 Hardware Removal, Spinal Cord Monitoring - Toni Vázquez DO Height/Weight Height: 5 ft 8 in Weight: 73.1 kg Allergies Allergy/AdvReac Type Severity Reaction Status Date / Time citalopram Allergy Unknown Unknown Verified 06/28/21 09:39 buspirone AdvReac Intermediate N/V Verified 06/28/21 09:39 Medications Home Medications Medication Instructions Recorded Confirmed Last Taken aspirin 81 mg tablet,delayed 81 mg PO QAM 04/16/18 06/28/21 09/21/20 06:30 release (Adult Aspirin Regimen) losartan 50 mg tablet 50 mg PO QAM 04/16/18 06/28/21 09/21/20 06:30 magnesium oxide 400 mg PO QAM tab 04/16/18 06/28/21 09/21/20 06:30 simvastatin 20 mg tablet 20 mg PO QPM 04/16/18 06/28/21 09/21/20 17:00 amlodipine 5 mg tablet 10 mg PO QAM 05/13/18 06/28/21 09/22/20 07:00 lorazepam 1 mg tablet 1 mg PO BID PRN 05/13/18 06/28/21 09/22/20 07:00 metoprolol succinate 25 mg 12.5 mg PO QAM 05/13/18 06/28/21 09/22/20 07:00 tablet,extended release 24 hr multivitamin 1 cap PO QAM 05/13/18 06/28/21 09/21/20 06:30 sildenafil 50 mg tablet (Viagra) 50 mg PO DAILY PRN 05/13/18 06/28/21 Unknown triamcinolone acetonide 0.1 % 1 applic TOPICAL UD PRN 05/13/18 06/28/21 Unknown topical cream meloxicam 15 mg tablet 15 mg PO QAM 08/08/18 06/28/21 09/21/20 06:30 omeprazole 20 mg capsule,delayed 20 mg PO QPM 09/30/18 06/28/21 09/21/20 17:00 release diclofenac sodium 75 mg 75 mg PO BID 06/28/21 06/28/21 Unknown tablet,delayed release gabapentin 100 mg capsule 300 mg PO BID 06/28/21 06/28/21 Unknown Past Medical History Medical History (Updated 07/08/21 @ 10:41 by Soila Tellez PA-C) Acid reflux controlled, stable per pt Anxiety Cavernous malformation incidental findings on brain imaging/under annual surveillance per [facility] PCP Degenerative disc disease Dyslipidemia Hypertension controlled, stable per pt Lumbar spinal stenosis Meningioma under surveillance by [facility] PCP Mild mitral regurgitation Mitral valve prolapse PVC (premature ventricular contraction) resolved with Metoprolol-F/U DR GILLILAND Patient denies h/o stroke, seizures, heart attack, heart failure, DM, blood clots or blood transfusions. Exercise / Class Metabolic Activity II 4-5 Yardwork/Stairs/Walk up hill (denies CP or SOB with 1 FOS) Past Family History Family History Other No known health problems Past Surgical History Surgical History Cervical vertebral fusion C4 corpectomy, C5-6 ACDF: 05/16/18: Grade 2 view (cricoid pressure to improve view), MAC#4, ETT 8.0 at [facility] (atraumatic, large floppy epiglottis required CCP to see beyond)> ROM is WNL. C6-C7 ACDF 09/22/2020: Grade 1 view, Glidescope #3, ETT#8.0. No issues per anesthesia postop progress note. Fusion of spine CERVICAL 09/22/2020 H/O arthroscopic knee surgery R/L History of cataract surgery left History of lumbar fusion L4-L5 decompression/fusion: 08/11/19: Grade 3 view, MAC#3, ETT 7.5 at [facility], DVL x1 atraumatic History of tonsillectomy Hx of appendectomy Hx of colonoscopy Hx of eye surgery Left macular pouch surgery (2014; [facility]) Past Anesthesia History No Hx of Anesthesia Complications and No Family Hx of Anesthesia Complications History of PONV No Hx of PONV and No Hx of Motion Sickness Social History Smoking Status: Former smoker tobacco type: cigarettes Do You Dip or Chew Tobacco: No Smoking End Date: QUIT IN HIS 20'S Hx Alcohol Use: Yes Alcohol type: wine alcohol intake frequency: 0-2 drinks per day (1 glass of wine q evening) Hx Substance Use: Yes substance use type: prescription drug Review of Systems Snoring and isolated witnessed apnea per pt's , denies sleep studies. Patient denies chest pain, shortness of breath, dyspnea on exertion, fever, chills, cough, wheezing, or palpitations. Physical Exam Vital Signs Vitals BP 135/70 P 59 TEMP 98.4 SP02 98% on RA RESP 17 Physical Full cervical extension range of motion without pain Full TMJ range of motion TMD 3.5 finger breaths Mallampati Score 3 Dentition: intact, several missing left lower back, cap/chipped tooth right upper side; denies loose teeth, implants or bridges Lungs: normal respiratory effort. Clear throughout to auscultation, no adventitious breath sounds Cardiac: regular rate and rhythm, no murmurs noted Carotid arteries: negative bruit bilat Extremities: no distal extremity edema Lab Results Anesthesia Preop Results Results Anesthesia Widget: WBC 8.31 K/uL (4.8-10.8) 07/08/21 Hgb 14.1 g/dL (14.0-18.0) 07/08/21 Hct 42.8 % (42-52) 07/08/21 Plt 287 K/uL (130-400) 07/08/21 Na 139 mmol/L (136-145) 07/08/21 K 5.1 mmol/L (3.5-5.1) 07/08/21 Cl 106 mmol/L (98-107) 07/08/21 CO2 27 mmol/L (21-32) 07/08/21 BUN 18 mg/dl (7-18) 07/08/21 Creat 0.88 mg/dl (0.6-1.4) 07/08/21 Glucose Level 86 mg/dl (70-99) 07/08/21 PT 9.8 Seconds (9.0-12.0) 07/08/21 PTT 26.8 Seconds (21.0-31.0) 07/08/21 INR 1.0 (0.9-1.1) 07/08/21 Urine Color Yellow 07/08/21 Urine Appearance Clear (Clear) 07/08/21 Urine pH 7.0 (4.5-7.5) 07/08/21 Urine Specific [place] 1.017 (1.000-1.030) 07/08/21 Urine Protein Negative (Negative) 07/08/21 Urine Glucose (UA) Negative (Negative) 07/08/21 Urine Ketones Trace (Negative) H 07/08/21 Urine Blood Negative (Negative) 07/08/21 Urine Nitrite Negative (Negative) 07/08/21 Urine Bilirubin Negative (Negative) 07/08/21 Urine Urobilinogen Negative (Negative) 07/08/21 Urine Leukocyte Esterase Negative (Negative) 07/08/21 Blood Type A Positive 07/08/21 Antibody Screen NEGATIVE 07/08/21 Testing Electrocardiogram Date: 09/02/20 Normal sinus rhythm, rate 61 bpm. Chest X-Ray Date: 09/02/20 FINDINGS: Lung volumes are normal. Lungs are clear. There is no pneumothorax or pleural effusion. Cardiac size is normal. Mediastinal contours are normal. There is no evidence for pulmonary edema. Anterior cervical spine fusion is partially imaged. Lumbar spine fusion hardware is also partially imaged. IMPRESSION: No acute cardiopulmonary findings. Echocardiogram Date: 03/10/21 Normal LV wall thickness, cavity size and EF (55-59%) Subtle bileaflet mitral valve prolapse Mild mitral regurgitation Grade I diastolic dysfunction
[~2021-07-22 06:14] MED LIST changes: +GABAPENTIN 300 MG CAP PO SCH; -GABAPENTIN 600 MG DOSE PO SCH; -GLYCOPYRROLATE 0.2 MG/ML VIAL ONE; -KETAMINE 50 MG/5 ML SYRINGE ONE; -LIDOCAINE HCL 2% 2 ML VIAL/AMP(20MG/ML) INFIL ONE; -MIDAZOLAM HCL 1 MG/ML 2ML VIAL ONE; -NEOSTIGMINE METHYLSULFATE 1 MG/ML 10ML VIAL ONE; -PROPOFOL IV EMULSION 10 MG/ML 20 ML VIAL IV ONE; -ROCURONIUM BROMIDE 10 MG/ML 5 ML VIAL IV ONE; -fentaNYL citrate 100 MCG/2 ML VIAL ONE
[2021-07-22] MEDS ORDERED: MIDAZOLAM HCL 1 MG/ML 2ML VIAL ONE (06:41)
[2021-07-22] MEDS ORDERED: KETAMINE 50 MG/5 ML SYRINGE ONE (06:42)
[2021-07-22] MEDS ORDERED: HYDROmorphone INJ 2 MG/ML SYR/VIAL ONE (06:42)
[2021-07-22] MEDS ORDERED: SUGAMMADEX SODIUM 200 MG/2 ML VIAL IV ONE (06:44)
[2021-07-22] MEDS ORDERED: ALBUMIN HUMAN 5% 12.5 GM/250 ML VIAL IV ONE (06:45)
[2021-07-22] MEDS ORDERED: EPINEPHrine INJ 1 MG/ML AMP ONE (06:59)
[2021-07-22] MEDS ORDERED: ceFAZolin 330 MG/ML 1 GM VIAL ONE (07:00)
[2021-07-22] MEDS ORDERED: BUPIVACAINE 0.5 % 5 MG/1 ML MPF 30ML VIAL ONE (07:00)
--- NOTE | 2021-07-22 07:35 | History & Physical Bridge Note ---
Date of Service July 22, 2021 History & Physical Bridge Note I have examined the patient, reviewed the History & Physical and in the interval since the performance of the History & Physical I have noted the following changes of clinical significance: no changes noted
--- NOTE | 2021-07-22 07:36 | History & Physical Report ---
Date of Service July 22, 2021 Assessment & Plan (1) Neurogenic claudication due to lumbar spinal stenosis: Plan: L3-L4 decompression and fusion, L4-L5 hardware removal History of Present Illness Chief Complaint: Back and leg pain Primary Care Provider: Tanner Bright DO This is a 65-year-old male well-known to me the presents with car persistent back and leg pain. Failing course of nonoperative care is here for surgical invention. Allergies Allergy/AdvReac Type Severity Reaction Status Date / Time citalopram Allergy Unknown Unknown Verified 07/22/21 06:37 buspirone AdvReac Intermediate N/V Verified 07/22/21 06:37 Home Medications Medication Instructions Recorded Confirmed Type aspirin 81 mg tablet,delayed 81 mg PO QAM 04/16/18 07/22/21 History release (Adult Aspirin Regimen) losartan 50 mg tablet 50 mg PO QAM 04/16/18 07/22/21 History magnesium oxide 400 mg PO QAM tab 04/16/18 07/22/21 History simvastatin 20 mg tablet 20 mg PO QPM 04/16/18 07/22/21 History amlodipine 5 mg tablet 10 mg PO QAM 05/13/18 07/22/21 History lorazepam 1 mg tablet 1 mg PO BID PRN 05/13/18 07/22/21 History metoprolol succinate 25 mg 12.5 mg PO QAM 05/13/18 07/22/21 History tablet,extended release 24 hr multivitamin 1 cap PO QAM 05/13/18 07/22/21 History sildenafil 50 mg tablet (Viagra) 50 mg PO DAILY PRN 05/13/18 07/22/21 History triamcinolone acetonide 0.1 % 1 applic TOPICAL UD PRN 05/13/18 07/22/21 History topical cream meloxicam 15 mg tablet 15 mg PO QAM 08/08/18 07/22/21 History omeprazole 20 mg capsule,delayed 20 mg PO QPM 09/30/18 07/22/21 History release diclofenac sodium 75 mg 75 mg PO BID 06/28/21 07/22/21 History tablet,delayed release gabapentin 100 mg capsule 300 mg PO BID 06/28/21 07/22/21 History Past Med/Surg History Medical History Acid reflux controlled, stable per pt Anxiety Cavernous malformation incidental findings on brain imaging/under annual surveillance per [facility] PCP Degenerative disc disease Dyslipidemia Hypertension controlled, stable per pt Lumbar spinal stenosis Meningioma under surveillance by [facility] PCP Mild mitral regurgitation Mitral valve prolapse PVC (premature ventricular contraction) resolved with Metoprolol-F/U DR GILLILAND Surgical History Cervical vertebral fusion C4 corpectomy, C5-6 ACDF: 05/16/18: Grade 2 view (cricoid pressure to improve view), MAC#4, ETT 8.0 at [facility] (atraumatic, large floppy epiglottis required CCP to see beyond)> ROM is WNL. C6-C7 ACDF 09/22/2020: Grade 1 view, Glidescope #3, ETT#8.0. No issues per anesthesia postop progress note. Fusion of spine CERVICAL 09/22/2020 H/O arthroscopic knee surgery R/L History of cataract surgery left History of lumbar fusion L4-L5 decompression/fusion: 08/11/19: Grade 3 view, MAC#3, ETT 7.5 at [facility], DVL x1 atraumatic History of tonsillectomy Hx of appendectomy Hx of colonoscopy Hx of eye surgery Left macular pouch surgery (2014; [facility]) Family History Other No known health problems Social History (Updated 06/28/21 @ 09:57 by Holly Gautam RN) Smoking Status: Former smoker Smoking End Date: QUIT IN HIS 20'S; Second Hand Exposure: No; Do You Dip or Chew Tobacco: No; Hx Alcohol Use: Yes Alcohol type: wine Hx Substance Use: Yes Preferred Language: Gambian Communication Ability: Effective Visual Impairment: No Limitations Rose Grader Required: No Beliefs That Will Affect Care: None marital status: Current Living Situation: Spouse current occupational status: employed current occupation: [employer] Other Information That Helps Us Care for You: No Feels Safe at Home: Yes Safety Concerns: Feels Safe At This Time Assistive Devices: Glasses Physical Exam Physical Exam: Patient is alert and oriented Heart regular in rhythm Lungs clear Results & Data ([facility]) Vital Signs (Past 12 Hours) Vital Signs Temp Pulse Resp BP Pulse Ox 07/22/21 06:33 36.9 C 63 18 125/85 98
[2021-07-22] MEDS ORDERED: ROCURONIUM BROMIDE 10 MG/ML 5 ML VIAL IV ONE (08:08)
[2021-07-22] MEDS ORDERED: LIDOCAINE 2% 2 ML VIAL/AMP(20MG/ML) INFIL ONE (08:08)
[2021-07-22] MEDS ORDERED: PROPOFOL IV EMULSION 10 MG/ML 20 ML VIAL IV ONE (08:08)
[2021-07-22] MEDS ORDERED: ONDANSETRON INJ 2 MG/ML 2 ML VIAL ONE (08:08)
[2021-07-22] MEDS ORDERED: DEXAMETHASONE SOD INJ 4 MG/ML VIAL ONE (08:08)
[2021-07-22] MEDS ORDERED: ePHEDrine sulfate 50 MG/ML SYR ONE (08:08)
[2021-07-22] MEDS ORDERED: FLOSEAL HEMOSTATIC MATRIX 10ML TOP ONE (09:26)
[2021-07-22] MEDS ORDERED: ONDANSETRON INJ 2 MG/ML 2 ML VIAL IV PRN ×2 (09:27→11:32)
[2021-07-22] MEDS ORDERED: ePHEDrine sulfate 50 MG/ML AMP IV PRN (09:27)
[2021-07-22] MEDS ORDERED: FLUMAZENIL 0.1 MG/1 ML 10 ML VIAL IV PRN (09:27)
[2021-07-22] MEDS ORDERED: PROMETHAZINE HCL 12.5 MG in SODIUM CHLORIDE 0.9% 50 ML IV PRN ×2 (09:27→11:32)
[2021-07-22] MEDS ORDERED: ATROPINE SULFATE 0.1 MG/ML 10ML SYR IV PRN (09:27)
[2021-07-22] MEDS ORDERED: LABETALOL HCL IV 5 MG/ML 20ML IV PRN (09:27)
[2021-07-22] MEDS ORDERED: NALOXONE HCL 0.4 MG/1 ML VIAL/CARP IV PRN ×2 (09:27→11:32)
--- NOTE | 2021-07-22 09:29 | Operative Report ---
Post Operative Report Pre & Post Diagnosis Operation Date: 07/22/21 07:45 Pre-Op Diagnosis: Spinal Stenosis, Lumbar Region with Neurogenic Claudication Post-Op Diagnosis: Spinal Stenosis, Lumbar Region with Neurogenic claudication I identified the patient and participated in the time-out.: Yes Procedure Operation Date: 07/22/21 07:45 Actual Procedures #1 removal of posterior instrumentation L4-L5. #2 exploration of fusion L4-5 per #3 lumbar decompression with bilateral medial facetectomies and foraminotomies L2-L3 L3-L4. #4 posterior spinal fusion L3-L4. #5 placement posterior instrumentation L3-L4. #6 interbody fusion L3-L4. #7 placement peek cage 11 x 26 mm at L3-L4. #8 placement locally harvested morselized autograft in the posterio r lateral gutters per #9 placement infuse collagen sponge, master graft in the posterior lateral gutters and I factor interbody space. Surgeon Toni Vázquez, DO Multimedia Coordinator Juan Dean Estimated Blood Loss 100 Findings Consistent with Post-Op Diagnosis Specimens None Indications This is a 65-year-old male who presents with a previous diagnosis of failed course of nonoperative care is here for the above-mentioned procedure. Description of Procedure Patient was met with identified informed consent obtained. Patient was then taken to the operative suite underwent ablation placed in a prone position adjustable top Stevenson frame. All bony prominences well-padded eyes inspected to ensure no external pressure placed monitor at this point the lumbar spine was prepped and draped in a sterile fashion. Sharp dissection with the assistance of Bovie cautery as well down to exposing the lamina and transverse processes of L3 and instrumentation at L4-L5 bilaterally. Then proceeded move the hardware bilaterally explore the fusion mass noting it to be mature and intact. Informed complete laminectomy of L3 partial laminectomy L2 including bilateral medial facetectomies and foraminotomies addressing severe spinal stenosis. Pedicle screws were then placed at L3 and L4 bilaterally with assistance of fluoroscopy and appropriately sized nitza placed. By way of a transit foraminal approach on the right a complete discectomy of L3 was four was performed endplates curetted to subcortically bone and a 11 x 26 mm peek cage filled I factor tapped in position. The rods were then compressed locked in final position bilaterally. The transverse processes of L3 and L4 burred to subcortical bleeding bone. Infuse collagen sponge mass graft was placed in the posterior gutters. 15 round FERNANDA inserted. The incision was then closed with 1 Vicryl fascia 2-0 Vicryl subcutaneously and 4 Monocryl for final skin closure. Steri-Strip sterile dressings placed. Patient waken taken PACU stable condition. Please note spinal cord monitoring was utilized at the procedure no changes noted. Lastly Juan Dean was present at the entire procedure and while the patient positioning complex portions of the surgery and final skin closure. I attest to the content of the Intraoperative Record and any orders documented t herein. Any exceptions are noted below.
--- NOTE | 2021-07-22 09:57 | Fluoroscopy Report ---
FL lumbar spine 2-3V CLINICAL HISTORY: L3-L4 DECOMP/FUSION,L4-L5 HARDWARE REMOVAL COMPARISON STUDY: Lumbar spine 08/11/2020. FLUOROSCOPY TIME: 9 seconds. FINDINGS: 3 fluoroscopic spot images of the lumbar spine. Interval removal of the L4-5 posterior fusi on hardware with interval placement of the L3-L4 pedicle screws and rods for posterior decompression and fusion. The hardware appears intact. IMPRESSION: Fluoroscopic assistance provided for L3-L4 posterior decompression fusion. ACT 112: Negative or not required by law. Electronically signed by: Reginaldo Caputo M.D. 07/22/2021 9:56 AM
[2021-07-22] MEDS: fentaNYL citrate 100 MCG/2 ML VIAL IV PRN ×4 (10:03→10:20)
[2021-07-22] MEDS: HYDROmorphone INJ 1 MG/ML SYRINGE IV PRN ×4 (10:25→10:40)
--- NOTE | 2021-07-22 10:54 | Anesthesiology Progress Note ---
Date of Service July 22, 2021 Anesthesia Post Procedure Vital Signs Vital Signs: Temp Pulse Pulse Resp BP Pulse Ox 07/22/21 10:45 62 17 96/61 L 96 07/22/21 10:35 84 14 104/66 99 07/22/21 10:25 80 14 107/72 98 07/22/21 10:15 73 17 118/67 97 07/22/21 10:05 80 19 115/73 98 07/22/21 09:55 81 9 L 116/77 95 07/22/21 09:45 36.6 C 75 16 107/72 98 07/22/21 06:33 36.9 C 63 18 125/85 98 Pain Intensity Lower Back: Pain Intensity: 7 Transfer of Care Handoff Completed per policy Notes Mental Status: alert / awake / arousable Patient Amnestic to Procedure: Yes Nausea / Vomiting: adequately controlled Pain: adequately controlled Airway Patency, RR, SpO2: stable & adequate BP & HR: stable & adequate Hydration State: stable & adequate Anesthetic Complications: no major complications apparent
[2021-07-22] MEDS: SODIUM CHLORIDE 0.9% 1000ML 1,000 ML IV SCH ×2 (11:20→21:49)
[2021-07-22] MEDS ORDERED: DO NOT ADMINISTER PNEUMOCOCCAL VACCINE PRN (11:32)
[2021-07-22] MEDS ORDERED: diphenhydrAMINE Capsule 25 MG CAP PO PRN (11:32)
[2021-07-22] MEDS ORDERED: hydrOXYzine HCl 25 MG TAB PO PRN (11:32)
[2021-07-22] MEDS ORDERED: oxyCODONE HCL IR 5 MG TAB (IMMEDIATE RELEASE) PO PRN (11:32)
[2021-07-22] MEDS ORDERED: HYDROmorphone INJ 1 MG/ML SYRINGE IV PRN (11:32)
[2021-07-22] MEDS ORDERED: ACETAMINOPHEN 1,000 MG/100 ML VIAL IV PRN (11:32)
[2021-07-22] MEDS ORDERED: SOD PHOSPHATE/SOD BIPHOSPHATE ENEMA 132 ML BTL PR PRN (11:32)
[2021-07-22] MEDS ORDERED: TRIAMCINOLONE ACET 0.1% CR 15 GM TUBE TOP PRN (11:32)
[2021-07-22] MEDS ORDERED: MAGNESIUM HYDROXIDE SUSP 30 ML UDC PO PRN (11:32)
[2021-07-22] MEDS ORDERED: HYDROmorphone INJ 0.5 MG/0.5 ML SYR IV PRN (11:32)
[2021-07-22] MEDS ORDERED: DO NOT ADMINISTER FLU VACCINE PRN (11:32)
[2021-07-22] MEDS ORDERED: ONDANSETRON 4 MG OD TAB PO PRN (11:32)
[2021-07-22] MEDS ORDERED: ALUMINUM/MAGNESIUM SUSP 30 ML UDC PO PRN (11:32)
[2021-07-22] MEDS ORDERED: FAMOTIDINE 20 MG TAB PO PRN (11:32)
[2021-07-22] MEDS ORDERED: ACETAMINOPHEN 500 MG TAB PO PRN (11:32)
[2021-07-22] MEDS ORDERED: bisacodyL 10 MG SUPP PR PRN (11:32)
[2021-07-22] MEDS ORDERED: LORazepam 0.5 MG/1 ML VIAL IV PRN (11:32)
[2021-07-22] MEDS ORDERED: METOCLOPRAMIDE HCL INJ 5 MG/ML 2 ML VIAL IV PRN (11:32)
--- NOTE | 2021-07-22 12:09 | Hospitalist Consultation ---
Date of Consultation July 22, 2021 Assessment & Plan (1) Neurogenic claudication due to lumbar spinal stenosis: - Pain management, bowel regimen and DVT ppx per the primary team, POD # 1 L4-L5 lumbar decompression fusion by Dr. Vázquez - PT/OT consults after surgery - Follow am CBC to monitor for acute blood loss (2) Hypertension: - Cont losartan, amlodipine, asa, metoprolol succinate - currently BP is borderline low, likely transient, will monitor, discussed with nursing. HR is also slightly low, holding parameters in place for beta blockade (3) Dyslipidemia: - Cont statin therapy (4) Meningioma: - Hx of such, stable, followed by PCP (5) Cavernous malformation: - Stable, followed by PCP DVT ppx: -teds, scds, ambulatory per primary team CODE: Full Dispo: From home, discharge when medically stable per the primary team Thank you for involving us in the care of Mr. Cheek. Please do not hesitate to call with questions or concerns. At this time medicine service will follow along. Supervising Physician Co-Signing Physician Notes Attending Addendum: care coordinated with MARIANNE Jennifer Guillen please refer to her notes for full details, I agree with her notes patient seen and examined, records reviewed by myself as well on exam, patient seen resting in bed, comfortable mild back soreness no chest pain, dyspnea, palpitations, dizziness no other symptoms VS noted and reviewed oriented x 3, not in distress, speaks in sentences with no effort nor accessory muscle use normal rate, regular rhythm, no murmurs clear breath sounds bilaterally non distended, soft, nontender back: dressing in place, no bleeding discharge, FERNANDA drain: serosanguinous output no bipedal edema, erythema, warmth no neuro deficits labs noted and reviewed ASSESSMENT AND PLAN S/P BACK SURGERY stable overall HTN continue usual medications other diagnoses and plan of care as per MARIANNE Jennifer F's notes Cheko Marr MD History of Present Illness Reason for Consultation: Medical management Requesting Physician: Dr. Vázquez Attending Physician: Toni Vázquez DO History of Present Illness This is a 65 yo with PMhx of HTN, HLD, DJD, cavernouse malformation, meningioma, lumbar spinal stenosis, GERD, anxiety who underwent L4-L5 lumbar decompression fusion with medial facetectomies and foraminotomies by Dr. Vázquez on 07/22/21. Mr. Cheek is doing well postoperatively. His numbness and tingling is gone and he has no pain. Pt is tolerating clear liquid diet without difficulty. He last had a BM yesterday. Sanderson catheter is still in place. Pt denies any acute complaints. Allergies Allergy/AdvReac Type Severity Reaction Status Date / Time citalopram Allergy Unknown Unknown Verified 07/22/21 06:37 buspirone AdvReac Intermediate N/V Verified 07/22/21 06:37 Home Medications Medication Instructions Recorded Confirmed Type aspirin 81 mg tablet,delayed 81 mg PO QAM 04/16/18 07/22/21 History release (Adult Aspirin Regimen) losartan 50 mg tablet 50 mg PO QAM 04/16/18 07/22/21 History magnesium oxide 400 mg PO QAM tab 04/16/18 07/22/21 History simvastatin 20 mg tablet 20 mg PO QPM 04/16/18 07/22/21 History amlodipine 5 mg tablet 10 mg PO QAM 05/13/18 07/22/21 History lorazepam 1 mg tablet 1 mg PO BID PRN 05/13/18 07/22/21 History metoprolol succinate 25 mg 12.5 mg PO QAM 05/13/18 07/22/21 History tablet,extended release 24 hr multivitamin 1 cap PO QAM 05/13/18 07/22/21 History sildenafil 50 mg tablet (Viagra) 50 mg PO DAILY PRN 05/13/18 07/22/21 History triamcinolone acetonide 0.1 % 1 applic TOPICAL UD PRN 05/13/18 07/22/21 History topical cream meloxicam 15 mg tablet 15 mg PO QAM 08/08/18 07/22/21 History omeprazole 20 mg capsule,delayed 20 mg PO QPM 09/30/18 07/22/21 History release diclofenac sodium 75 mg 75 mg PO BID 06/28/21 07/22/21 History tablet,delayed release gabapentin 100 mg capsule 300 mg PO BID 06/28/21 07/22/21 History oxycodone 5 mg tablet 5 mg PO Q6H PRN #30 tab 07/22/21 Rx tramadol 50 mg tablet 50 mg PO Q6H PRN #30 tab 07/22/21 Rx Patient History Medical History (Updated 07/22/21 @ 12:07 by Heather Michaud PA-C) Acid reflux controlled, stable per pt Anxiety Cavernous malformation incidental findings on brain imaging/under annual surveillance per [facility] PCP Degenerative disc disease Dyslipidemia Hypertension controlled, stable per pt Lumbar spinal stenosis Meningioma under surveillance by [facility] PCP Mild mitral regurgitation Mitral valve prolapse PVC (premature ventricular contraction) resolved with Metoprolol-F/U DR GILLILAND Surgical History Cervical vertebral fusion C4 corpectomy, C5-6 ACDF: 05/16/18: Grade 2 view (cricoid pressure to improve view), MAC#4, ETT 8.0 at [facility] (atraumatic, large floppy epiglottis required CCP to see beyond)> ROM is WNL. C6-C7 ACDF 09/22/2020: Grade 1 view, Glidescope #3, ETT#8.0. No issues per anesthesia postop progress note. Fusion of spine CERVICAL 09/22/2020 H/O arthroscopic knee surgery R/L History of cataract surgery left History of lumbar fusion L4-L5 decompression/fusion: 08/11/19: Grade 3 view, MAC#3, ETT 7.5 at [facility], DVL x1 atraumatic History of tonsillectomy Hx of appendectomy Hx of colonoscopy Hx of eye surgery Left macular pouch surgery (2014; [facility]) Family History Other No known health problems Social History (Updated 06/28/21 @ 09:57 by Holly Gautam RN) Smoking Status: Former smoker Smoking End Date: QUIT IN HIS 20'S; Second Hand Exposure: No; Do You Dip or Chew Tobacco: No; Hx Alcohol Use: Yes Alcohol type: wine Hx Substance Use: Yes Preferred Language: Yoruba Communication Ability: Effective Visual Impairment: No Limitations Unclaimed Property Manager Required: No Beliefs That Will Affect Care: None marital status: Current Living Situation: Spouse current occupational status: employed current occupation: [employer] Other Information That Helps Us Care for You: No Feels Safe at Home: Yes Safety Concerns: Feels Safe At This Time Assistive Devices: Walker Review of Systems Review of Systems: Constitutional: No fever, sweats or chills Eyes: No diplopia, no worsening or blurred vision ENT: normal hearing, no trouble swallowing Respiratory: No cough, sputum, dyspnea at rest or on exertion Cardiovascular: No chest pain, tightness or palpitations Abdomen: No pain, nausea, vomiting, diarrhea or constipation Musculoskeletal: No joint pain, calf pain, swelling Neurologic: No weakness, numbness/tingling, or balance problems Psychiatric: No anxiety or depression Skin: No rash or itch Physical Exam Physical Exam: General: awake, alert, no apparent distress Head: Normocephalic, atraumatic ENT: PERRL, EOMI, no pharyngeal exudate, mucous membranes moist Chest: Clear to auscultation, on 2 L via NC, no adventitious breath sounds Cardiac: Regular rate and rhythm, no murmur, no JVD, normal peripheral pulses, good capillary refill Abdominal: NABS x 4 quadrants, soft, nondistended, nontender to palpation, no rebound or guarding Back: dressing c/d/i, FERNANDA drain in place Extremities: Normal inspection, no peripheral edema or erythema, calfs nontender to palpation Psych: Normal mood and affect Neuro: AAO x 3, strength intact bilaterally and rated 5/5, no motor deficits, speech is clear, no peripheral sensory deficits Results & Data Results & Data ([facility]) Vital Signs (Past 12 Hours) Vital Signs Temp Pulse Pulse Resp BP Pulse Ox 07/22/21 11:54 36.6 C 62 16 110/66 93 07/22/21 11:32 36.9 C 69 14 104/64 94 07/22/21 10:55 36.5 C 70 15 101/51 L 97 07/22/21 10:45 62 17 96/61 L 96 07/22/21 10:35 84 14 104/66 99 07/22/21 10:25 80 14 107/72 98 07/22/21 10:15 73 17 118/67 97 07/22/21 10:05 80 19 115/73 98 07/22/21 09:55 81 9 L 116/77 95 07/22/21 09:45 36.6 C 75 16 107/72 98 07/22/21 06:33 36.9 C 63 18 125/85 98 Laboratory Results 07/22/21 07/22/21 07:07 06:25 SARS-CoV-2, RNA, NAAT NEGATIVE Blood Type A Positive Antibody Screen NEGATIVE Diagnostic Findings Lumbar Spine X-Ray 07/22/21 07:45 FL lumbar spine 2-3V CLINICAL HISTORY: L3-L4 DECOMP/FUSION,L4-L5 HARDWARE REMOVAL COMPARISON STUDY: Lumbar spine 08/11/2020. FLUOROSCOPY TIME: 9 seconds. FINDINGS: 3 fluoroscopic spot images of the lumbar spine. Interval removal of the L4-5 posterior fusion hardware with interval placement of the L3-L4 pedicle screws and rods for posterior decompression and fusion. The hardware appears intact. IMPRESSION: Fluoroscopic assistance provided for L3-L4 posterior decompression fusion. ACT 112: Negative or not required by law. Electronically signed by: Reginaldo Caputo M.D. 07/22/2021 9:56 AM
[2021-07-22] MEDS: KETOROLAC TROMETHAMINE 15 MG/ML VIAL IV SCH ×2 (12:21→17:51)
[2021-07-22] MEDS: ceFAZolin 2000MG 2,000 MG/15 ML SYR IV SCH (15:52)
[2021-07-22] MEDS: LORazepam 0.5 MG TAB PO PRN (21:48)
[2021-07-22] MEDS: SIMVASTATIN 20 MG TAB PO SCH (21:49)
[2021-07-22] MEDS: DOCUSATE SODIUM/SENNA 50/8.6MG TAB PO SCH (21:49)
[2021-07-22] MEDS: PANTOprazole 40 MG TAB PO SCH (21:49)
[2021-07-22] MEDS: GABAPENTIN 300 MG CAP PO SCH (21:49)
[2021-07-23] MEDS: ceFAZolin 2000MG 2,000 MG/15 ML SYR IV SCH (00:08)
[2021-07-23] MEDS: KETOROLAC TROMETHAMINE 15 MG/ML VIAL IV SCH ×2 (00:10→06:34)
[2021-07-23 05:53] LABS: Hematocrit (blood only) 31.8 % (42-52); Hemoglobin 10.2 g/dL (14.0-18.0); Immature Granulocytes # (auto) 0.04 K/uL (0.00-0.02); Immature Granulocytes % (auto) 0.2 %; Lymphocytes % (auto) 5.9 %; Mean Corpuscular Hemoglobin 31.7 pg (25-34); Mean Corpuscular Hgb Conc 32.1 g/dL (32-36); Mean Corpuscular Volume 98.8 fL (80-100); Mean Platelet Volume 10.3 fL (7.4-10.4); Monocytes # (auto) 1.47 K/uL (0.11-0.59); Monocytes % (auto) 8.6 %; Neutrophils # (auto) 14.52 K/uL (1.4-6.5); Neutrophils % (auto) 85.3 %; Platelet Count 217 K/uL (130-400); RDW Coefficient of Variation 14.1 % (11.5-14.5); RDW Standard Deviation 50.6 fL (36.4-46.3); Red Blood Count 3.22 M/uL (4.7-6.1); White Blood Count 17.03 K/uL (4.8-10.8)
[2021-07-23 06:19] LABS: Calcium 7.6 mg/dl (8.5-10.1); Creatinine Clr Calc Pharmacy 79.2 ml/min; Est GFR (African American) 103.5 ml/min; Est GFR (Non-African American) 89.3 ml/min; Potassium 4.3 mmol/L (3.5-5.1)
[2021-07-23] MEDS: POLYETHYLENE (MIRALAX) 17 GM PACK PO SCH ×3 (06:35→18:14)
[2021-07-23] MEDS: SODIUM CHLORIDE 0.9% 1000ML 1,000 ML IV SCH (08:05)
--- NOTE | 2021-07-23 08:18 | Orthopedic Progress Note ---
Date of Service July 23, 2021 Assessment & Plan (1) Neurogenic claudication due to lumbar spinal stenosis: Plan: At this time initiate physical therapy monitor his FERNANDA operatively discharge home in the next few days. Admission and Anticipated Discharge Date Admission Date: July 22, 2021 Subjective Back pain controlled leg pain markedly improved Physical Exam Physical Exam: Patient is comfortable. Is good strength testing. Results & Data ([facility]) Vital Signs (Past 12 Hours) Vital Signs Temp Pulse Resp BP BP Pulse Ox 07/23/21 07:10 36.8 C 62 16 105/61 96 07/23/21 04:36 36.8 C 65 16 99/57 L 96 07/23/21 00:08 36.8 C 61 15 117/67 94
[2021-07-23] MEDS: MULTIVITAMIN TAB PO SCH (08:35)
[2021-07-23] MEDS: ASPIRIN 81 MG ECTAB PO SCH (08:35)
[2021-07-23] MEDS: MAGNESIUM OXIDE 400 MG TAB PO SCH (08:36)
[2021-07-23] MEDS: dexAMETHasone 6 MG in SYRINGE 0 ML IV SCH (08:36)
[2021-07-23] MEDS: GABAPENTIN 300 MG CAP PO SCH ×2 (08:36→21:02)
[2021-07-23] MEDS: LOSARTAN POTASSIUM 50 MG TAB PO SCH (09:00)
[2021-07-23] MEDS: amLODIPine BESYLATE 5 MG TAB PO SCH (09:00)
[2021-07-23] MEDS: METOPROLOL SUCC 25MG EXT REL TAB PO SCH (09:00)
[2021-07-23] MEDS: traMADol HCL 50 MG TABLET PO PRN ×2 (12:12→21:06)
[2021-07-23] MEDS: LORazepam 0.5 MG TAB PO PRN ×2 (12:12→21:06)
--- NOTE | 2021-07-23 15:14 | Hospitalist Progress Note ---
Date of Service July 23, 2021 Assessment & Plan (1) Neurogenic claudication due to lumbar spinal stenosis: Plan: Patient stable overall to medical standpoint Hemoglobin decreased to 10 Asymptomatic Monitor hemoglobin Transfuse for hemoglobin less than 8 (2) Hypertension: Plan: Blood pressure 103/65 Hold amlodipine 5 to prevent hypotension Continue losartan and metoprolol Monitor blood pressure (3) Dyslipidemia: Plan: - Cont statin therapy (4) Meningioma: Plan: - Hx of such, stable, followed by PCP (5) Cavernous malformation: Plan: - Stable, followed by PCP DVT ppx: -teds, scds, ambulatory per primary team CODE: Full Thank you for this consultation. We will follow the patient with you during their hospital stay. You can reach a member of the [facility] Hospitalist Team 22/01 via pager @ [phone]. Admission and Anticipated Discharge Date Admission Date: July 22, 2021 Subjective Follow-up for status post spinal surgery for lumbar stenosis Etc. Seen resting in bedside chair, comfortable, not in distress States he feels fine overall Has mild surgical site pain Denies chest pain, palpitations, dizziness, shortness of breath Ambulated with no problems No other symptoms Review of Systems 2 Review of Systems: all noted and negative except for above Physical Exam Physical Exam: General- oriented x 3, not in distress, speaks in sentences with no effort or accessory muscle use Eyes- anicteric Neck- no JVD Lungs- clear breath sounds bilaterally, no rales/wheezes Heart- normal rate, regular rhythm; no murmurs Abdomen- normal bowel sounds, nondistended, soft, nontender Back-dressing in place: No bleeding or discharge on the dressing FERNANDA drain in place: Small amount of serosanguineous output Extremities- no pretibial edema, no calf tenderness Neuro- alert, oriented x 3; no gross focal neurologic deficits Skin- warm & dry Results & Data Results & Data ([facility]) Vital Signs (Past 12 Hours) Vital Signs Temp Pulse Resp BP BP Pulse Ox 07/23/21 13:22 103/65 07/23/21 08:32 79 116/84 07/23/21 07:10 36.8 C 62 16 105/61 96 07/23/21 04:36 36.8 C 65 16 99/57 L 96 all noted and reviewed including below
[2021-07-23] MEDS ORDERED: SODIUM CHLORIDE 0.9% 1000ML 1,000 ML IV SCH (15:15)
[2021-07-23] MEDS: DOCUSATE SODIUM/SENNA 50/8.6MG TAB PO SCH (20:17)
[2021-07-23] MEDS: SIMVASTATIN 20 MG TAB PO SCH (21:02)
[2021-07-23] MEDS: PANTOprazole 40 MG TAB PO SCH (21:02)
[2021-07-24] MEDS: traMADol HCL 50 MG TABLET PO PRN ×2 (07:50→20:08)
[2021-07-24] MEDS: ASPIRIN 81 MG ECTAB PO SCH (09:33)
[2021-07-24] MEDS: LOSARTAN POTASSIUM 50 MG TAB PO SCH (09:33)
[2021-07-24] MEDS: dexAMETHasone 6 MG in SYRINGE 0 ML IV SCH (09:33)
[2021-07-24] MEDS: GABAPENTIN 300 MG CAP PO SCH ×2 (09:33→17:08)
[2021-07-24] MEDS: MAGNESIUM OXIDE 400 MG TAB PO SCH (09:33)
[2021-07-24] MEDS: MULTIVITAMIN TAB PO SCH (09:34)
[2021-07-24] MEDS: METOPROLOL SUCC 25MG EXT REL TAB PO SCH (09:34)
[2021-07-24 09:43] LABS: Hematocrit (blood only) 35.2 % (42-52); Hemoglobin 11.5 g/dL (14.0-18.0); Immature Granulocytes # (auto) 0.04 K/uL (0.00-0.02); Immature Granulocytes % (auto) 0.2 %; Lymphocytes # (auto) 1.37 K/uL (1.2-3.4); Lymphocytes % (auto) 8.3 %; Mean Corpuscular Hemoglobin 32.3 pg (25-34); Mean Corpuscular Hgb Conc 32.7 g/dL (32-36); Mean Corpuscular Volume 98.9 fL (80-100); Mean Platelet Volume 10.5 fL (7.4-10.4); Monocytes # (auto) 1.28 K/uL (0.11-0.59); Monocytes % (auto) 7.8 %; Neutrophils # (auto) 13.77 K/uL (1.4-6.5); Neutrophils % (auto) 83.7 %; Platelet Count 230 K/uL (130-400); RDW Coefficient of Variation 14.4 % (11.5-14.5); RDW Standard Deviation 52.2 fL (36.4-46.3); Red Blood Count 3.56 M/uL (4.7-6.1); White Blood Count 16.46 K/uL (4.8-10.8)
[2021-07-24] MEDS: LORazepam 0.5 MG TAB PO PRN ×2 (11:03→20:08)
--- NOTE | 2021-07-24 11:33 | Hospitalist Progress Note ---
Date of Service July 24, 2021 Assessment & Plan (1) Neurogenic claudication due to lumbar spinal stenosis: Plan: Patient stable overall to medical standpoint Hemoglobin decreased to 10--> today 11 Asymptomatic Monitor hemoglobin Transfuse for hemoglobin less than 8 (2) Hypertension: Plan: Blood pressure 103/65 Hold amlodipine 5 to prevent hypotension Continue losartan and metoprolol Monitor blood pressure History of PVCs EKG showing sinus rhythm with PVCs continue Metoprolol LLQ pain from constipation? improved monitor (3) Dyslipidemia: Plan: - Cont statin therapy (4) Meningioma: Plan: - Hx of such, stable, followed by PCP (5) Cavernous malformation: Plan: - Stable, followed by PCP DVT ppx: -teds, scds, ambulatory per primary team CODE: Full Thank you for this consultation. We will follow the patient with you during their hospital stay. You [facility] via pager @ [phone]. Admission and Anticipated Discharge Date Admission Date: July 22, 2021 Subjective ff up s/p back surgery, etc seen resting in chair states he had LLQ discomfort yesterday, given Miralax- caused stomach upset and diarrhea LLQ pain and stomach upset resolved no chest pain, dyspnea, palpitations, dizziness back pain well controlled no other symptoms Review of Systems Review of Systems: all noted and negative except for above Physical Exam Physical Exam: General- oriented x 3, not in distress, speaks in sentences with no effort or accessory muscle use Eyes- anicteric Neck- no JVD Lungs- clear BS BL Heart- normal rate, regular rhythm; no murmurs Abdomen- normal bowel sounds, nondistended, soft, nontender Extremities- no pretibial edema, no calf tenderness Neuro- alert, oriented x 3; no gross focal neurologic deficits Skin- warm & dry Results & Data Results & Data ([facility]) Vital Signs (Past 12 Hours) Vital Signs Temp Pulse Resp BP BP Pulse Ox 07/24/21 11:06 68 129/82 07/24/21 09:26 54 L 127/76 07/24/21 07:19 37.1 C 58 L 16 128/72 92 all noted and reviewed including below
--- NOTE | 2021-07-24 11:56 | Orthopedic Progress Note ---
Date of Service July 24, 2021 Assessment & Plan (1) Neurogenic claudication due to lumbar spinal stenosis: Plan: At this time we will continue physical therapy maintain his FERNANDA drain anticipate discharge home tomorrow. Admission and Anticipated Discharge Date Admission Date: July 22, 2021 Subjective Patient's back pain is controlled leg symptoms markedly improved Physical Exam Physical Exam: Patient is in the chair at the bedside. Appears comfortable. Is excellent strength testing. Results & Data ([facility]) Vital Signs (Past 12 Hours) Vital Signs Temp Pulse Resp BP BP Pulse Ox 07/24/21 11:06 68 129/82 07/24/21 09:26 54 L 127/76 07/24/21 07:19 37.1 C 58 L 16 128/72 92
[2021-07-24] MEDS: PANTOprazole 40 MG TAB PO SCH (17:08)
[2021-07-24] MEDS: SIMVASTATIN 20 MG TAB PO SCH (17:09)
[2021-07-24] MEDS: DOCUSATE SODIUM/SENNA 50/8.6MG TAB PO SCH (17:09)
--- NOTE | 2021-07-24 20:27 | Electrocardiogram Report ---
Test Reason : Blood Pressure : / mmHG Vent. Rate : 084 BPM Atrial Rate : 072 BPM P-R Int : 170 ms QRS Dur : 092 ms QT Int : 392 ms P-R-T Axes : 048 028 025 degrees QTc Int : 463 ms Sinus rhythm with frequent , and consecutive Premature ventricular complexes Abnormal ECG When compared with ECG of 02-SEP-2020 13:13, Premature ventricular complexes are now Present Confirmed by Dakota Story ([id number]) on 07/24/2021 8:26:29 PM Referred By: Toni Vázquez Confirmed By:Ra Story
[2021-07-25 07:50] VITALS: TEMP 98.2; O2SAT 95
[2021-07-25] MEDS: GABAPENTIN 300 MG CAP PO SCH (08:06)
[2021-07-25] MEDS: dexAMETHasone 6 MG in SYRINGE 0 ML IV SCH (08:06)
[2021-07-25] MEDS: MULTIVITAMIN TAB PO SCH (08:07)
[2021-07-25] MEDS: MAGNESIUM OXIDE 400 MG TAB PO SCH (08:08)
[2021-07-25] MEDS: LOSARTAN POTASSIUM 50 MG TAB PO SCH (08:08)
[2021-07-25] MEDS: ASPIRIN 81 MG ECTAB PO SCH (08:09)
[2021-07-25] MEDS: METOPROLOL SUCC 25MG EXT REL TAB PO SCH (08:09)
[2021-07-25] MEDS: amLODIPine BESYLATE 5 MG TAB PO SCH (08:10)
[2021-07-25] MEDS: traMADol HCL 50 MG TABLET PO PRN (08:17)
--- NOTE | 2021-07-25 10:24 | Hospitalist Progress Note ---
Date of Service July 25, 2021 Assessment & Plan (1) Neurogenic claudication due to lumbar spinal stenosis: Plan: POD #[address] Vázquez Patient stable overall to medical standpoint hgb stable Asymptomatic Monitor hemoglobin Transfuse for hemoglobin less than 8 (2) Hypertension: Plan: Blood pressure improved continue amlodipine, metoprolol and losartan pt refused amlodipine today due to HR on lower side, Toprol held due to bradycardia History of PVCs EKG showing sinus rhythm with PVCs continue Metoprolol Bradycardia this AM HR in 40s per nurse RRR during my examination repeat EKG, yesterday revealed PVC metoprolol held EKG today SR 69bpm with PVC (3) Dyslipidemia: Plan: Cont statin therapy (4) Meningioma: Plan: Hx of such, stable, followed by PCP (5) Cavernous malformation: Plan: Stable, followed by PCP Dispo: Probable discharge to home today DVT ppx: -teds, scds, ambulatory per primary team CODE: Full Thank you for this consultation. We will follow the patient with you during their hospital stay. You can reach a member of the [facility] Hospitalist Team 22/01 via pager @ [phone]. Patient was seen and examined in collaboration with, Dr. Marr, please see addendum The chart was completed utilizing [employer] Speech voice recognition software. Grammatical errors, random word insertions, pronoun errors, and incomplete sentences are an occasional consequence of this system due to software limitations, ambient noise, and hardware issues. Any formal questions or concerns about the content, text, or information contained within the body of this dictation should be directly addressed to the provider for clarification. Admission and Anticipated Discharge Date Admission Date: July 22, 2021 Supervising Physician Co-Signing Physician Notes Attending Addendum: care coordinated with MARIANNE Haro please refer to her notes for full details, I agree with her notes patient seen and examined, records reviewed by myself as well on exam, patient seen resting in bedside chair, comfortable, in good spirits Denies any back pain No chest pain, palpitations, dizziness, ambulated with no problems no other symptoms VS noted and reviewed oriented x3, not in distress, speaks in sentences with no effort nor accessory muscle use normal rate, regular rhythm, no murmurs clear breath sounds bilaterally non distended, soft, nontender Back: Dressing in place, no bleeding or discharge FERNANDA drain in place-small amount of serosanguineous output no bipedal edema, erythema, warmth no neuro deficits Labs noted and reviewed ASSESSMENT AND PLAN Status post lumbar spine surgery for spinal stenosis Hypertension PVCs Stable overall Continue usual medications for hypertension, PVCs No medical contraindication for discharge other diagnoses and plan of care as per MARIANNE Haro's notes Cheko Marr MD Subjective Patient was seen and examined in room 312. Follow-up lumbar surgery. He is sitting up in bedside chair and offers no acute concerns. He feels back pain is controlled. He denies any radicular symptoms. Is hoping to be discharged today. He is passing flatus and moving bowels. Denies chest pain, shortness of breath, nausea, vomiting. Tolerating diet. Review of Systems Review of Systems: All systems reviewed & are unremarkable except as noted in HPI & below Physical Exam Physical Exam: Gen: WD/WN, NAD, A&O x3 HEENT: Normocephalic, atraumatic, conjunctivae moist, sclerae anicteric, mucous membranes moist. Lung: Clear to Auscultation bilaterally, no wheezes/rales/rhonchi Heart: Regular rate, regular rhythm, no murmurs, rubs, or gallops Abdomen: Soft, NT, ND +BS x 4 Extremities: No edema, lumbar dressing CDI, FERNANDA drain with serosanguineous drainage Skin: Warm, no rash, negative turgor. Results & Data Results & Data ([facility]) Vital Signs (Past 12 Hours) Vital Signs Temp Pulse Pulse Resp BP Pulse Ox 07/25/21 07:59 44 L 07/25/21 07:44 36.8 C 43 L 18 147/72 H 95 07/24/21 22:50 36.9 C 67 18 154/71 H 94 Medications Administered Current Inpatient Medications Acetaminophen (Acetaminophen 500 Mg Tab) 1,000 mg PO Q8H PRN PRN Reason: MILD Pain Scale 1,2,3 & Pre PT Stop: 08/21/21 11:31 Al Hydrox/Mg Hydrox/Simethicone (Aluminum/Magnesium Susp 30 Ml Udc) 30 ml PO Q6H PRN PRN Reason: Dyspepsia Stop: 08/21/21 11:31 Last Admin: 07/24/21 01:24 Dose: 30 ml Documented by: Amlodipine Besylate (Amlodipine Besylate 5 Mg Tab) [facility] Stop: 08/22/21 08:59 Last Admin: 07/25/21 08:10 Dose: Not Given Documented by: Aspirin (Aspirin 81 Mg Ectab) [facility] Stop: 08/22/21 08:59 Last Admin: 07/25/21 08:09 Dose: 81 mg Documented by: Bisacodyl (Bisacodyl 10 Mg Supp) 10 mg LA DAILY PRN PRN Reason: Constipation Stop: 08/21/21 11:31 Diphenhydramine HCl (Diphenhydramine Capsule 25 Mg Cap) 25 mg PO Q6H PRN PRN Reason: Allergic Rhinitis/Insomnia Stop: 08/21/21 11:31 Famotidine (Famotidine 20 Mg Tab) 20 mg PO Q12H PRN PRN Reason: Dyspepsia Stop: 08/21/21 11:31 Gabapentin (Gabapentin 300 Mg Cap) 300 mg PO BID [facility] Stop: 08/21/21 20:59 Last Admin: 07/25/21 08:06 Dose: 300 mg Documented by: Hydromorphone HCl (Hydromorphone Inj 0.5 Mg/0.5 Ml Syr) 0.5 mg IV Q3H PRN PRN Reason: MODERATE Pain (Scale 4,5,6) & Pre PT Stop: 08/05/21 11:31 Hydromorphone HCl (Hydromorphone Inj 1 Mg/Ml Syringe) 1 mg IV Q3H PRN PRN Reason: SEVERE Pain (Scale 7,8,9,10) Stop: 08/05/21 11:31 Hydroxyzine HCl (Hydroxyzine Hcl 25 Mg Tab) 25 mg PO Q8H PRN PRN Reason: Anxiety Stop: 08/21/21 11:31 Promethazine HCl 12.5 mg/ (Sodium Chloride) 50.5 mls @ 202 mls/hr IV Q6H PRN PRN Reason: Nausea &/or Vomiting Stop: 08/21/21 11:31 Acetaminophen (Ofirmev) 1,000 mg in 100 mls @ 400 mls/hr IV Q8H PRN PRN Reason: Pain Rating 1-3 & Pre PT Stop: 07/25/21 11:31 Lorazepam (Ativan) 0.5 mg in 1 mls @ 1 mls/min IV Q8H PRN PRN Reason: Sedation/Anxiety Stop: 08/21/21 11:31 Influenza Virus Vaccine Quadrival (Do Not Administer Flu Vaccine) 1 ea N/A PRN PRN PRN Reason: Notification Stop: 08/21/21 11:31 Lorazepam (Lorazepam 0.5 Mg Tab) 0.5 mg PO Q8H PRN PRN Reason: Sedation/Anxiety Stop: 08/21/21 11:31 Last Admin: 07/24/21 20:08 Dose: 0.5 mg Documented by: Losartan Potassium (Losartan Potassium 50 Mg Tab) 50 mg PO [facility] Stop: 08/22/21 08:59 Last Admin: 07/25/21 08:08 Dose: 50 mg Documented by: Magnesium Hydroxide (Magnesium Hydroxide Susp 30 Ml Udc) 30 ml PO Q24H PRN PRN Reason: Constipation Stop: 08/21/21 11:31 Last Admin: 07/23/21 18:14 Dose: 30 ml Documented by: Magnesium Oxide (Magnesium Oxide 400 Mg Tab) 400 mg PO [facility] Stop: 08/22/21 08:59 Last Admin: 07/25/21 08:08 Dose: 400 mg Documented by: Metoclopramide HCl (Metoclopramide Hcl Inj 5 Mg/Ml 2 Ml Vial) 10 mg IV Q6H PRN PRN Reason: Nausea &/or Vomiting Stop: 08/21/21 11:31 Metoprolol Succinate (Metoprolol Succ 25mg Ext Rel Tab) 12.5 mg PO [facility] Stop: 08/22/21 08:59 Last Admin: 07/25/21 08:09 Dose: Not Given Documented by: Multivitamins (Multivitamin Tab) 1 tab PO [facility] Stop: 08/22/21 08:59 Last Admin: 07/25/21 08:07 Dose: 1 tab Documented by: Naloxone HCl (Naloxone Hcl 0.4 Mg/1 Ml Vial/Carp) 0.1 mg IV Q5M PRN PRN Reason: Oversedation/Resp depression Stop: 08/21/21 11:31 Ondansetron HCl (Ondansetron Inj 2 Mg/Ml 2 Ml Vial) 4 mg IV Q6H PRN PRN Reason: Nausea &/or Vomiting Stop: 08/21/21 11:31 Ondansetron HCl (Ondansetron 4 Mg Od Tab) 4 mg PO Q6H PRN PRN Reason: Nausea Stop: 08/21/21 11:31 Oxycodone HCl (Oxycodone Hcl Ir 5 Mg Tab (Immediate Release)) 5 - 10 mg PO Q4H PRN PRN Reason: Pain & Pre PT Stop: 08/05/21 11:31 Pantoprazole Sodium (Pantoprazole 40 Mg Tab) 40 mg PO QPM [facility] Stop: 08/21/21 20:59 Last Admin: 07/24/21 17:08 Dose: 40 mg Documented by: Pneumococcal Polyvalent Vaccine (Do Not Administer Pneumococcal Vaccine) 1 ea N/A PRN PRN PRN Reason: Notification Stop: 08/21/21 11:31 Senna/Docusate Sodium (Docusate Sodium/Senna 50/8.6mg Tab) 2 tab PO HS [facility] Stop: 08/21/21 20:59 Last Admin: 07/24/21 17:09 Dose: Not Given Documented by: Simvastatin (Simvastatin 20 Mg Tab) 20 mg PO QPM [facility]AR[facility] Stop: 08/21/21 20:59 Last Admin: 07/24/21 17:09 Dose: 20 mg Documented by: Sodium Biphosphate/Sodium Phosphate (Sod Phosphate/Sod Biphosphate Enema 132 Ml Btl) 132 ml LA ONE PRN PRN Reason: Constipation Stop: 08/21/21 11:31 Tramadol HCl (Tramadol Hcl 50 Mg Tablet) 50 - 100 mg PO Q4H PRN PRN Reason: Moderate-Severe pain & Pre PT Stop: 08/21/21 11:31 Last Admin: 07/25/21 08:17 Dose: 50 mg Documented by: Triamcinolone Acetonide (Triamcinolone Acet 0.1% Cr 15 Gm Tube) 1 appln TOP UD PRN PRN Reason: SKIN IRRITATION Stop: 08/21/21 11:31
[2021-07-25 11:19] VITALS: BP 124/42
--- NOTE | 2021-07-25 13:01 | Discharge Summary ---
Date of Service July 25, 2021 Admission HPI Per Admitting Provider This is a 65-year-old male well-known to me the presents with car persistent back and leg pain. Failing course of nonoperative care is here for surgical invention. Principal Diagnosis Lumbar spinal stenosis with neurogenic claudication Discharge Data Allergies Allergy/AdvReac Type Severity Reaction Status Date / Time citalopram Allergy Unknown Unknown Verified 07/22/21 06:37 buspirone AdvReac Intermediate N/V Verified 07/22/21 06:37 Consultations 07/22/21 11:32 Consult Hospitalist Routine Procedures Performed Operation Date: 07/22/21 07:45 Actual Procedures p L3-L4 Decompression Fusion, Spinal Cord Monitoring, Application of Bone Morphogenetic Protein, and I-Factor. (Not Applicable) - Toni Vázquez DO s L4-L5 Hardware Removal,(Not Applicable) - Toni Vázquez DO Ordered Studies 07/22/21 07:45 FL lumbar spine 2-3V Routine Hospital Course (1) Neurogenic claudication due to lumbar spinal stenosis: Patient underwent lumbar decompression fusion tolerated this well was taken to orthopedic floor postoperative. Postop day 1 he was up and ambulating Willy postop day #2 postop day 3 FERNANDA drain decreased appropriate. Pain well controlled. Subsequent discharge home. Discharge orders instructions from the chart for further review. Total Time Total Time Spent Total Time Spent (In Minutes): 20 minutes Discharge Plan Discharge Items Patient Disposition: Home - Self-Care Reason For Visit: Spinal Stenosis, Lumbar Region with Neurogenic Discharge Diagnosis: Lumbar spinal stenosis with radiculopathy Activity: As commented below Non-emergency contact: Primary Care Provider Call non-emergency contact if: you have any medication questions Follow-up/Referrals: Tanner Bright DO [Primary Care Provider] - Diet: Regular Addtl Attending Provider Instructions: ACTIVITY RECOMMENDATIONS: SELF CARE INSTRUCTIONS AFTER THORACIC/LUMBAR FUSIONS 1. You may walk to your tolerance. It is good exercise for your legs and back. Expect some back and intermittent leg aches and pains. 2. You may perform "counter-top" level activities (make a sandwich, acosta with a project, etc.). 3. No bending or lifting of more than 10 pounds or back twisting of any nature (roll like a log when turning in bed). 4. You may ride in a car for 20-30 minutes at a time. No driving until after your first visit with your doctor. 5. Frequent changes of position and restricting sitting to 30 minutes at a time will help limit the amount of back spasms and stiffness you may experience. 6. You may discontinue the use of ambulatory aids (cane, crutches, etc.) once your strength and confidence allow. 7. You may employment appeals examiner the shower and let water strike your incision when you arrive home at least once daily. Do not take a tub bath, sit in a hot tub or go into a swimming pool until after your first recheck in the office. SPECIAL CARE INSTRUCTIONS: VERY IMPORTANT TO READ AND REVIEW A. Your surgical incision has been closed with a cosmetic suture under the skin that will dissolve in about 6 weeks. In 14 days, you can use a pair of clean scissors and cut the suture that is left outside of the skin at the ends of your incision. 1. The small skin tapes can be removed 7 days after surgery if they have not fallen off by that point. 2. You may keep the wound open to air as much as possible to promote healing after post-op day number 5 unless told otherwise by your doctor. 3. If you think the wound looks like it is becoming infected (redness or worsening drainage) and/or you are experiencing fever, chill or worsening back pain and muscle spasms, contact the office so that we may evaluate you as soon as possible. B. Complications are uncommon, but please contact us if you have any signs or symptoms of: 1. wound infection (fever higher than 102.5 degrees F, redness, separation of wound, drainage, or increasing pain from the incision) 2. blood clots in legs (pain, swelling, redness and warmth in legs) 3. urinary tract infection (fever higher than 102.5 degrees F, burning upon urination or increased frequency of urination) 4. nerve problems (inability to walk on your toes or heels, numbness, loss of bowel or bladder control) 5. any other symptoms that concern you C. Please call the office at if you have any concerns or questions about your operation or recovery. D. No smoking! Smoking drastically decreases the chance of a solid fusion. E. Do not take any anti-inflammatory medications (Indocin, Advil, Motrin, Aspirin, Naprosyn, etc.) as these may inhibit the chance of a solid fusion. Tylenol is okay to take for pain. MANAGING PAIN AFTER SPINAL SURGERY 1. Narcotic medication is intended for short-term use and will be provided for surgical pain. Surgical pain usually lasts for a period of 4-6 weeks. Narcotic medication includes Percocet, Vicodin, Darvocet, Tylenol #3 or Lortab. 2. Longer-term pain is more appropriately treated with non-narcotic medication such as Tylenol ES. 3. Muscle spasm is not appropriately treated with narcotics. Muscle relaxers such as Soma, Flexeril or Skelaxin can be used along with Tylenol ES. 4. Remember that we all live with some "aches and pains". This is not unusual or uncommon after an injury or as we get older. a. Back pain is expected and may include muscle spasms for 4 to 6 weeks after surgery. The pain should gradually improve. If the pain worsens for no apparent reason, please contact the office. b. Intermittent leg pain may also be experienced and should not be concerned about unless it worsens for no apparent reason. If so, please contact the office. 5. We will provide appropriate medication within the normal guidelines of their prescribed use. We will also be very cautious and aware of potential abuse and extended duration of patients' medication needs. a. Pain medications are for your comfort and to assist with sleep and rest so that the tissue can heal. They are not provided in order to return to normal activity and should not be used through the day. To do so or worsening pain at night can result from ongoing tissue damage and development of tolerance to the prescribed medicine. 6. Please allow 2-3 days to process refills. Prescriptions will not be mailed but must be picked up at the office. FOLLOW UP VISIT: Keep your scheduled follow-up appointment. Any questions, please call the office at . Pending Studies at Discharge: No Stand-Alone Forms: [employer], Smoking Cessation Medications and DC Order Prescriptions: New oxycodone 5 mg tablet 5 mg PO Q6H PRN (Reason: pain, severe) Qty: 30 RF: 0 tramadol 50 mg tablet 50 mg PO Q6H PRN (Reason: pain, moderate) Qty: 30 RF: 0 Continued losartan 50 mg tablet 50 mg PO QAM RF: 0 aspirin [Adult Aspirin Regimen] 81 mg tablet,delayed release (DR/EC) 81 mg PO QAM RF: 0 simvastatin 20 mg tablet 20 mg PO QPM RF: 0 magnesium oxide 400 mg magnesium tablet 400 mg PO QAM RF: 0 omeprazole 20 mg capsule,delayed release(DR/EC) 20 mg PO QPM RF: 0 sildenafil [Viagra] 50 mg Tablet 50 mg PO DAILY PRN (Reason: intercourse) RF: 0 amlodipine 5 mg Tablet 10 mg PO QAM RF: 0 triamcinolone acetonide 0.1 % Cream 1 applic TOPICAL UD PRN (Reason: SKIN IRRITATION ) RF: 0 metoprolol succinate 25 mg Tablet Extended Release 24 Hr 12.5 mg PO QAM RF: 0 lorazepam 1 mg Tablet 1 mg PO BID PRN (Reason: Anxiety) RF: 0 multivitamin Capsule 1 cap PO QAM RF: 0 gabapentin 100 mg capsule 300 mg PO BID RF: 0 Discontinued meloxicam 15 mg tablet 15 mg PO QAM RF: 0 diclofenac sodium 75 mg Tablet,Delayed Release (Dr/Ec) 75 mg PO BID RF: 0 Discharge Orders: Discharge Order (Routine); Ordered 07/25/21 Ordered By: Toni Vázquez Admission Data Admit Date/Time: 07/22/21 09:33 Attending Provider: Toni Vázquez Admit Provider: Toni Vázquez Primary Care Provider: Tanner Bright Other Providers: Tamika Mccauley ; Cheko Marr ; Romana Jeter
[2021-07-25 13:09] VITALS: PULSE 43
--- NOTE | 2021-07-25 16:04 | Electrocardiogram Report ---
Test Reason : Blood Pressure : / mmHG Vent. Rate : 069 BPM Atrial Rate : 069 BPM P-R Int : 160 ms QRS Dur : 084 ms QT Int : 402 ms P-R-T Axes : 049 026 019 degrees QTc Int : 430 ms Sinus rhythm with frequent Premature ventricular complexes Abnormal ECG When compared with ECG of 24-JUL-2021 10:50, No significant change was found Confirmed by Dakota Story ([id number]) on 07/25/2021 4:03:37 PM Referred By: Toni Vázquez Confirmed By:Ra Story
== END 2021-07-25 15:42 | disposition home or self-care (01) | DRG 454 ==
LOC: ASU 06:14 → 3E 09:33